=== PATIENT | female | born 1990 | race Caucasian/White ===

== ENCOUNTER 2023-09-09 15:29 | Outpatient (CLI) | payer BC, SELFPAY ==
[2023-09-11 13:28] LABS: Progesterone 19.4 ng/mL
== END 2023-09-09 15:30 | disposition home or self-care (01) ==
LOC: ANHLAB 15:34
PROVIDERS: Visit Provider Student in an Organized Health Care Education/Training Program
DX: Z30.09 Encounter for other general counseling and advice on contraception (principal)
CPT/HCPCS: 36415; 84144

== ENCOUNTER 2023-10-12 16:29 | Emergency (ER) | payer BC, SELFPAY ==
--- NOTE | ~2023-10-12 | US_ITS ---
EXAMINATION: US OB <= 14 weeks fetus DATE: 10/12/2023 19:42 INDICATION: Early . Vaginal bleeding. TECHNIQUE: Real-time transabdominal and transvaginal pelvic ultrasound was performed. COMPARISON: None. FINDINGS: TRANSABDOMINAL ULTRASOUND: The uterus measures 10.4 x 6.0 x 7.9 cm. TRANSVAGINAL ULTRASOUND: There is an intrauterine gestational sac. A yolk sac is identified. The fet al crown rump length measures 1.3 cm, which correlates with an estimated gestational age of 7 weeks a nd 4 day(s) (+/-) 5 day(s). heart motion is identified measuring 157 beats per minute (bpm) by M-mode Doppler. The right ovary measures 3.4 x 2.7 x 2.5 cm. The left ovary measures 2.9 x 2.5 x 2.1 cm. There is no free fluid in the pelvis. IMPRESSION: 1. Single living intrauterine gestation with estimated date of delivery of 05/26/2024. Reviewed, dictated and finalized at location A. IMPRESSION: 1. Single living intrauterine gestation with estimated date of delivery of 05/09.
[2023-10-12 16:33] VITALS: BP 130/62; PULSE 77; RESP 16; TEMP 36.4; O2SAT 100
--- NOTE | 2023-10-12 16:52 | ED.PREGNANCY ---
HPI - General Chief complaint: Vaginal Bleeding <RIYA Mancia Last Filed: 10/12/23 19:21> Stated complaint: 8 weeks with vaginal bleeding <RIYA Mancia Last Filed: 10/12/23 19:21> Time Seen by Provider: 10/12/23 16:37 <RIYA Mancia Last Filed: 10/12/23 19:21> Source: patient <RIYA Mancia Last Filed: 10/12/23 19:21> Mode of arrival: ambulatory <RIYA Mancia Last Filed: 10/12/23 19:21> Limitations: no limitations <RIYA Mancia Last Filed: 10/12/23 19:21> History of Present Illness HPI Narrative: Patient is a 33 y/o female who presents to the ED with c/o vaginal bleeding. Patient is and currently approx 8 weeks gestation. OBGYN = Dr. Medrano. Had an US around 2 weeks ago at an outside ED and showed live IUP. Did show a subchorionic hematoma. Reports today she felt a gush of fluid today while at work and noticed bright red blood when she went to the bathroom. Contacted her OBGYN and was referred here for further evaluation. Patient reports she has had ongoing cramping in her right lower abdomen and lower back since began. Denies any change in cramping today. Reports ongoing nausea. Denies vomiting, dysuria, hematuria, fevers, dizziness/lightheadedness. Denies recent intercourse/heavy lifting. <RIYA aMncia Last Filed: 10/12/23 19:21> Related Data Home medications: Home Medications Medication Instructions Recorded Confirmed vits no.126-ferrous fum tablet PO 10/04/23 28 mg iron-folic acid 800 mcg tablet (Classic ) <RIYA Mancia Last Filed: 10/12/23 19:21> Allergies/Adverse reactions: Allergies Allergy/AdvReac Type Severity Reaction Status Date / Time ibuprofen Allergy Mild Nausea and Verified 10/12/23 16:36 Vomiting morphine Allergy Mild Itching Verified 10/12/23 16:36 <Bryanna Becerra PA-C - Last Filed: 10/12/23 19:21> Review of Systems Review of Systems: All systems reviewed & are unremarkable except as noted in HPI. <Bryanna Becerra PA-C - Last Filed: 10/12/23 19:21> All systems reviewed & are unremarkable except as noted in HPI and below <Bryanna Becerra PA-C - Last Filed: 10/12/23 19:21> [facility] Past Medical History Medical History: Medical History Suppression of menses <Bryanna Becerra PA-C - Last Filed: 10/12/23 19:21> Surgical History Surgical History: Surgical History History of delivery History of tonsillectomy <Bryanna Becerra PA-C - Last Filed: 10/12/23 19:21> Family History Family History: Family History Father Hypertension Mother No problems noted. Sibling No problems noted. <Bryanna Becerra PA-C - Last Filed: 10/12/23 19:21> Social History Social History: Social History Smoking status: Current every day smoker Tobacco type: e-cigarettes/vaping Alcohol intake: current Substance use: current Substance use type: marijuana Last use: edible at night Do You Feel Safe in your Home?: Yes Lack of Transportation: No Lack of Food: Never True Current Housing: I Have Housing Concerned About Future Housing: No Difficulty Paying Gas/Electric Bills: No Difficulty Paying for Meds: No Currently Unemployed: No Education: Trade/Vocational Certificate Difficulty w/ Childcare or Family Care: No Living arrangements: with family Occupation/Education: occupation Gender identity (if verbalized by the patient): Female Sexual Orientation (if Verbalized by the Patient): Straight or Heterosexual <Bryanna Becerra,
[2023-10-12 17:03] LABS: Basophils Percent Auto 0.3 % (0.2-1.2); Eosinophils Percent Auto 0.5 % (0-4.4); Hematocrit 33.5 % (37.0-47.0); Hemoglobin 11.3 g/dL (12.0-15.0); Immature Granulocyte Absolute 0.03 K/mm3 (0.00-0.031); Immature Granulocyte Percent A 0.4 % (0-0.5); Lymphocytes Percent Auto 18.3 % (18.3-44.2); Mean Corpuscular HGB Conc 33.7 g/dl (32-36); Mean Corpuscular Hemoglobin 29.6 pg (26-34); Mean Corpuscular Volume 87.7 fl (80-100); Mean Platelet Volume 10.3 fl (7.4-10.4); Monocytes Absolute Auto 0.5 K/mm3 (0.1-0.6); Monocytes Percent Auto 6.5 % (2.6-8.5); Neutrophils Absolute Auto 5.7 K/mm3 (1.3-6.7); Platelet Count Result 176 k/mm3 (150-375); Red Blood Count 3.82 M/mm3 (4.2-5.4); Red Cell Distribution Width 12.2 % (11.5-14.5); White Blood Count 7.7 K/mm3 (4.5-10.0)
[2023-10-12 17:04] LABS: Add Urine Microscopic? NO; Appearance Urine Clear (Clear); Bilirubin Urine Negative (Negative); Blood Urine Negative (Negative); Color Urine Yellow (Yellow); Glucose Urine UA Negative (Negative); Ketones Urine Negative (Negative); Leukocyte Esterase Ur Negative LEU/UL (Negative); Nitrate Urine Negative (Negative); Protein Urine Negative (Negative); Specific Grav Ur 1.025 (1.001-1.035); Urobilinogen Urine 0.2 mg/dL (<2.0); pH Urine 5.5 (5.0-9.0)
[2023-10-12 17:15] LABS: Prothrombin Time 13.2 Seconds (11.1-14.7)
[2023-10-12 17:16] LABS: Partial Thromboplastin Time 29.3 Seconds (22.3-36.8)
[2023-10-12 18:13] LABS: Alanine Aminotransferase 16 U/L (6-35); Albumin Level 4.6 g/dL (3.5-5.1); Alkaline Phosphatase 45 U/L (38-126); Anion Gap 13 mmol/L (4-12); Aspartate Amino Transferase 49 U/L (14-36); Bilirubin,Total 0.7 mg/dL (0.2-1.3); Blood Urea Nitrogen 17 mg/dL (7-17); Calcium 9.2 mg/dL (8.4-10.2); Carbon Dioxide 22 mmol/L (22-30); Chloride 99 mmol/L (98-107); Estimated CRCL calculation 108 ml/min; Estimated Glomerular Filt Rate > 60; Glucose 84 mg/dL (65-110); Potassium 4.9 mmol/L (3.4-5.0); Sodium 134 mmol/L (137-145)
[2023-10-12 20:00] VITALS: BP 122/85; PULSE 87; RESP 16; O2SAT 98
== END 2023-10-12 20:34 | disposition home or self-care (01) ==
PROVIDERS: Emergency Provider Physician Assistant
DX: O20.9 Hemorrhage in early pregnancy, unspecified (principal); O99.331 Smoking (tobacco) complicating pregnancy, first trimester; F17.290 Nicotine dependence, other tobacco product, uncomplicated; Z3A.08 8 weeks gestation of pregnancy
CPT/HCPCS: 36415; 76801; 80053; 81003; 84702; 85025; 85461; 85610; 85730; 86850; 86900; 86901; 99284

== ENCOUNTER 2023-10-25 11:23 | Outpatient (CLI) | payer BC, SELFPAY ==
[2023-10-25 12:53] LABS: Basophils Percent Auto 0.4 % (0.2-1.2); Eosinophils Absolute Auto 0.1 K/mm3 (0-0.3); Eosinophils Percent Auto 0.9 % (0-4.4); Hematocrit 34.5 % (37.0-47.0); Hemoglobin 11.4 g/dL (12.0-15.0); Immature Granulocyte Absolute 0.14 K/mm3 (0.00-0.031); Immature Granulocyte Percent A 1.8 % (0-0.5); Lymphocytes Absolute Auto 1.38 K/mm3 (0.9-3.2); Lymphocytes Percent Auto 17.8 % (18.3-44.2); Mean Corpuscular Volume 87.8 fl (80-100); Mean Platelet Volume 10.6 fl (7.4-10.4); Monocytes Absolute Auto 0.4 K/mm3 (0.1-0.6); Monocytes Percent Auto 5.7 % (2.6-8.5); Neutrophils Absolute Auto 5.7 K/mm3 (1.3-6.7); Neutrophils Percent Auto 73.4 % (45.5-73.1); Platelet Count Result 199 k/mm3 (150-375); Red Blood Count 3.93 M/mm3 (4.2-5.4); Red Cell Distribution Width 12.2 % (11.5-14.5); White Blood Count 7.8 K/mm3 (4.5-10.0)
[2023-10-25 14:05] LABS: HIV 1/2 Ab P24 Ag Result Negative (Negative)
[2023-10-25 14:14] LABS: Hepatitis B Surface Antigen Negative (Negative); Rubella IgG Antibody 34.8 IU/ML
[2023-10-25 17:27] LABS: Rapid Plasma Reagin Non-Reactive (NonReactive)
[2023-10-26 13:23] LABS: CMV IgG Antibody <0.60 U/mL
== END 2023-10-25 11:24 | disposition home or self-care (01) ==
LOC: ANHLAB 11:25
PROVIDERS: Visit Provider Student in an Organized Health Care Education/Training Program
DX: N94.89 Other specified conditions associated with female genital organs and menstrual cycle (principal)
CPT/HCPCS: 36415; 81220; 85025; 86592; 86644; 86703; 86747; 86762; 86787; 86850; 86900; 86901; 87086; 87340; G0432

== ENCOUNTER 2024-03-08 08:49 | Outpatient (CLI) | payer BC, SELFPAY ==
--- OUTSIDE RECORDS SUMMARY | 2024-03-08 09:13 | XMS_ITS | Clinical Summary ---
Author Organization [facility] Address [address] [place] [address] Care Team Providers Care Setter Helper Name Role Phone Whit Dailey MD Primary Care Provider [phone] Source Comments [facility],non-owned Affiliates and Associated Physician Practices is amultiple site organization consisting of ambulatory clinics and hospital sitesin [place], [place], [place] and [place]. This disclosure is being madepursuant to the Care Everywhere program and may not contain all information available regarding this patient. Last updated 17.[facility] Allergies Active Allergy Reactions Criticality Noted Date Comments Morphine Angioedema High 10/03/2023 Ibuprofen Angioedema High 10/03/2023 Medications * Be aware that medications may not be up to date on this document. Alwaysverify current medications with the patient. Medication Sig Dispensed Refills Start Date End Date Status escitalopram (Lexapro) 5 MG tablet Take 1 (one) tablet by mouth once daily 12/08/2023 Active hydrOXYzine HCl (Atarax) 25 MG tablet Take 1 (one) tablet by mouth 3 times daily as needed 12/06/2023 Active ondansetron (Zofran) 4 MG tablet TAKE 1 TABLET BY MOUTH EVERY 6 HOURS NEEDED FOR NAUSEA OR VOMITING 10/05/2023 Active Cetirizine HCl (ZYRTEC PO) Active fluticasone propionate (Flonase) 50 MCG/ACT nasal spray [place] 2 (two) sprays into each nostril Active diphenhydrAMINE (Benadryl) 25 MG capsule Take 1 (one) capsule by mouth nightly as needed for Itching Active Active Problems Problem Noted Date Diagnosed Date Generalized anxiety disorder 12/21/2023 Allergic rhinitis 12/21/2023 18 weeks gestation of 12/21/2023 PND (post-nasal drip) 12/21/2023 Skipped heart beats 12/21/2023 Estimated Date of Delivery Comme nts Yes 05/25/2024 Encounters Date Type Department Care Team Description 01/18/2024 Telephone [facility] [address] [place] [address] Whit Dailey MD Referral 12/21/2023 9:00 AM WIRE REPAIRER Office Visit [facility] [address] [place] [phone] Whit Dailey MD 18 weeks gestation of (HCC) (Primary Dx); Allergic rhinitis, unspecified seasonality, unspecified trigger; PND (post-nasal drip); Generalized anxiety disorder; Skipped heart beats from Last 3 Months Family History Medical History Relation Name Comments Depression Father High Cholesterol Father None Known Maternal Grandfather None Known Maternal Grandmother None Known Mother Dementia Paternal Grandmother Depression Sister 1 Relation Name Status Comments Brother Alive Father Alive Maternal Grandfather Maternal Grandmother Mother Alive Paternal Grandfather Paternal Grandmother Alive Sister 1 Alive Sister 2 Alive Social History Tobacco Use Types Packs/Day Years Used Date Smoking Tobacco: Former Cigarettes Q uit: 2022 Smokeless Tobacco: Never Tobacco Cessation:Counseling Given: Not Answered Alcohol Use Standard Drinks/Week Comments Not Currently 0 (1 standard drink = 0.6 oz pur e alcohol) PHQ-2 Answer Date Recorded Patient Health Questionnaire-2 Score 0 12/21/2023 Estimated Date of Delivery Comme nts Yes 05/25/2024 Sex and Gender Information Value Date Recorded Sex Assigned at Not on file Gender Identity Not on file Sexual Orientation Not on file Last Filed Vital Signs Vital Sign Reading Time Taken Comments Blood Pressure 102/63 12/21/2023 8:52 AM WIRE REPAIRER Pulse 99 12/21/2023 8:52 AM WIRE REPAIRER Temperature 36.8 ??C (98.3 ??F) 10/21/2023 9:34 AM CD T Respiratory Rate 18 12/21/2023 8:52 AM WIRE REPAIRER Oxygen Saturation 98% 12/21/2023 8:52 AM WIRE REPAIRER Inhaled Oxygen Concentration - - Weight 72.1 kg (159 lb) 12/21/2023 8:52 AM WIRE REPAIRER Height 170.2 cm (5' 7 ) 12/21/2023 8:52 AM WIRE REPAIRER Body Mass Index 24.9 12/21/2023 8:52 AM WIRE REPAIRER Plan of Treatment Upcoming Encounters Date Type Department Care Team (Late st Contact Info) Description 04/03/2024 11:30 AM WIRE REPAIRER Office Visit [facility] - Family Medicine [address] [place] [address] Whit Dailey MD [address] [place] [address] Health Maintenance Due Date Last Done Comments HIV SCREENING 02/07/2003 HEPATITIS C SCREENING 02/03/2006 DTAP/TDAP/TD VACCINES (1 - Tdap) 02/07/2007 HEPATITIS B VACCINE (1 of 3 - 19+ 3-dose series) 02/07/2007 COVID-19 VACCINE ( - 2023-2 5 season) 2023 INFLUENZA VACCINE (#1) 2023 DEPRESSION SCREENING 02/09/2024 12/21/2023 OB-ONE HOUR GLUCOSE 02/17/2024 OB-TDAP CURRENT 02/24/2024 PAP SMEAR 09/08/2025 09/08/2022 (Done Outside Per Patient) ZOSTER VACCINE (1 of 2) 02/07/2038 HIB VACCINE Aged Out No longer eligi ble based on patient's age to complete this topic HPV VACCINE Aged Out No longer eligi ble based on patient's age to complete this topic MENINGOCOCCAL (Group B) VACCINE Aged Out No longer eligible based on patient's age to complete this topic MENINGOCOCCAL VACCINE Aged Out No dominga brent eligible based on patient's age to complete this topic PNEUMOCOCCAL VACCINE Aged Out No long er eligible based on patient's age to complete this topic Respiratory Syncytial Virus (RSV) Vaccine Pt: or over 60 yrs (No Doses Required) Completed Care Teams Setter Helper Relationship Specialty Start Date End Date Whit Dailey MD [address] [place] [address] PCP - General Family Medicine 12/21/23
--- OUTSIDE RECORDS SUMMARY | 2024-03-08 09:13 | XMS_ITS | Patient Health Summary ---
Author Organization [facility] Address [address] [place] [address] Care Team Providers Care Men'S Basketball Coach Name Role Phone Whit Dailey MD Primary Care Provider [phone] Note from [facility],non-owned Affiliates and Associated Physician Practices is amultiple site organization consisting of ambulatory clinics and hospital sitesin [place], [place], [place] and [place]. This disclosure is being madepursuant to the Care Everywhere program and may not contain all information available regarding this patient. Last updated 17.[facility] Allergies * Morphine(Angioedema) -High Criticality * Ibuprofen(Angioedema) -High Criticality Medications * Be aware that medications may not be up to date on this document. Alwaysverify current medications with the patient. * escitalopram (Lexapro) 5 MG tablet(Started 12/08/2023) Take 1 (one) tablet by mouth once daily * hydrOXYzine HCl (Atarax) 25 MG tablet(Started 12/06/2023) Take 1 (one) tablet by mouth 3 times daily as needed * ondansetron (Zofran) 4 MG tablet(Started 10/05/2023) TAKE 1 TABLET BY MOUTH EVERY 6 HOURS NEEDED FOR NAUSEA OR VOMITING * Cetirizine HCl (ZYRTEC PO) * fluticasone propionate (Flonase) 50 MCG/ACT nasal spray [place] 2 (two) sprays into each nostril * diphenhydrAMINE (Benadryl) 25 MG capsule Take 1 (one) capsule by mouth nightly as needed for Itching Active Problems Problem Noted Date Diagnosed Date Generalized anxiety disorder 12/21/2023 Allergic rhinitis 12/21/2023 18 weeks gestation of 12/21/2023 PND (post-nasal drip) 12/21/2023 Skipped heart beats 12/21/2023 Social History Tobacco Use Types Packs/Day Years [...] Comments Blood Pressure 102/63 12/21/2023 8:52 AM BOWLING BALL ASSEMBLER Pulse 99 12/21/2023 8:52 AM BOWLING BALL ASSEMBLER Temperature 36.8 ??C (98.3 ??F) 10/21/2023 9:34 AM C DT Respiratory Rate 18 12/21/2023 8:52 AM BOWLING BALL ASSEMBLER Oxygen Saturation 98% 12/21/2023 8:52 AM BOWLING BALL ASSEMBLER Inhaled Oxygen Concentration - - Weight 72.1 kg (159 lb) 12/21/2023 8:52 AM BOWLING BALL ASSEMBLER Height 170.2 cm (5' 7 ) 12/21/2023 8:52 AM BOWLING BALL ASSEMBLER Body Mass Index 24.9 12/21/2023 8:52 AM BOWLING BALL ASSEMBLER Procedures * US OB LESS 14 WKS W TRANSV W DOPP(Performed 10/21/2023) Performed for Vaginal bleeding during (HCC) * TYPE + SCREEN PANEL(Performed 10/21/2023) * HCG BETA BLOOD QUANTITATIVE(Performed 10/21/2023) * MAGNESIUM BLOOD(Performed 10/21/2023) * COMPREHENSIVE METABOLIC PANEL(Performed 10/21/2023) * CBC W AUTO DIFFERENTIAL(Performed 10/21/2023) * US OB LESS 14 WKS W TRANSV W DOPP(Performed 10/03/2023) Performed for Pelvic cramping * URINALYSIS REFLEX MICROSCOPIC REFLEX CULTURE(Performed 10/03/2023) * BLOOD TYPE ABO+ RH PANEL(Performed 10/03/2023) * HCG BETA BLOOD QUANTITATIVE(Performed 10/03/2023) * MAGNESIUM BLOOD(Performed 10/03/2023) * COMPREHENSIVE METABOLIC PANEL(Performed 10/03/2023) * CBC W AUTO DIFFERENTIAL(Performed 10/03/2023) Results * US OB Less 14 Wks W Transv W Dopp (10/21/2023 11:16 AM CDT) Only the most recent of2 resultswithin the time period is included. Anatomical Region Laterality Modality Pelvis Ultrasound 10/21/2023 11:2 3 AM CDT Narrative 10/21/2023 11:30 AM CDT PROCEDURE: ??US OB LESS 14 WKS W TRANSV W DOPP, DATE/TIME OF EXAM: 10/21/2023 11:16 AM, LOCATION ??[facility] INDICATION: O46.90: Antepartum hemorrhage, unspecified, unspecified trimester (HCC) Obstetric ultrasound transabdominal and transvaginal views HISTORY: Vaginal bleeding bleeding and . Comparison is made to 10/03/2023. Since prior examination is been interval growth of an intrauterine gestation now consistent with a 9 week 1 day gestation with positive heart tones of 161 bpm. There is a probable 5.1 x 1.1 x 3.8 cm subchorionic hemorrhage. The right ovary measures 4.1 cm and the left ovary measures 3.0 cm. There is a likely right corpus luteum measuring 2.7 cm. There is a area of 5 slight increased echotexture in the left adnexa adjacent to the uterus of uncertain significance. Could represent an echogenic bowel loop or less likely an dermoid tumor. The flanks however were not seen on prior ultrasound examination and would more likely represent a bowel loop and dermoid. Normal color flow and spectral waveforms are present. No free pelvic fluid is seen. Examination is limited and follow-up is recommended. > Interpreting Provider: Quinton Triana MD on 10/21/2023 11:30 AM Procedure Note Quinton Triana MD - 10/21/2023 PROCEDURE: US OB LESS 14 WKS W TRANSV W DOPP, DATE/TIME OF EXAM: 10/21/2023 11:16 AM, LOCATION [facility] INDICATION: O46.90: Antepartum hemorrhage, unspecified, unspecified trimester (HCC) Obstetric ultrasound transabdominal and transvaginal views HISTORY: Vaginal bleeding bleeding and . Comparison is made to 10/03/2023. Since prior examination is been interval growth of an intrauterine gestation now consistent with a 9 week 1 day gestation with positivefetal heart tones of 161 bpm. There is a probable 5.1 x 1.1 x 3.8 cmsubchorionic hemorrhage. The right ovary measures 4.1 cm and the left ovary measures 3.0 cm.There is a likely right corpus luteum measuring 2.7 cm. There is a area of 5 slight increased echotexture in the left adnexa adjacent to the uterusof uncertain significance. Could represent an echogenic bowel loop or less likely an dermoid tumor. The flanks however were not seen on prior ultrasound examination and would more likely represent a bowel loop and dermoid. Normal color flow and spectral waveforms are present. No free pelvic fluid is seen. Examination is limited and follow-up is recommended. > Interpreting Provider: Quinton Triana MD on 10/21/2023 11:30 AM [facility] US ORDERABLES * TYPE + SCREEN PANEL (10/21/2023 9:55 AM CDT) ABO Rh O POS 10/21/2023 10:32 AM CDT [facility] Comment:History checked. Antibody Screen NEG 10:32 AM CDT [facility] Blood Bank BLOOD SPECIMEN / Unknown Venipuncture / Unknown 10/21/2023 9:55 AM CDT 10/21/2023 9:55 AM CDT [facility] - BLOOD BANK O RDERABLES [facility] [address] [phone] * (ABNORMAL) CBC W AUTO DIFFERENTIAL (10/21/2023 9:55 AM CDT) Only the most recent of2 resultswithin the time period is included. WBC 6.0 4.0 - 10.7 x10E9/L 10/21/2023 9:57 AM CDT [facility] RBC Count 3.91 3.90 - 5.20 x10E12/L 10/21/2023 9:57 AM CDT [facility] Hemoglobin 11.3(L) 11.9 - 15.8 g/dL 10/21/2023 9:57 AM CDT [facility] Hematocrit 34.0(L) 34.8 - 46.1 % 10/21/2023 9:57 AM CDT [facility] MCV 87.0 80.0 - 98.0 fL 10/21/2023 9:57 AM CDT [facility] MCH 28.9 26.7 - 33.6 pg 10/21/2023 9:57 AM CDT [facility] MCHC 33.2 31.7 - 36.3 g/dL 10/21/2023 9:57 AM CDT [facility] RDW-CV 12.3 11.3 - 14.8 % 10/21/2023 9:57 AM CDT [facility] Platelet Count 174 150 - 420 x10E9/L 10/21/2023 9:57 AM CDT [facility] MPV 9.8 7.8 - 11.4 fL 10/21/2023 9:57 AM CDT [facility] Neutrophil % 72.0 41.0 - 74.0 % 10/21/2023 9:57 AM CDT [facility] Lymphocyte % 19.3 17.0 - 47.0 % 10/21/2023 9:57 AM CDT [facility] Monocyte % 7.0 3.0 - 11.0 % 10/21/2023 9:57 AM CDT [facility] Eosinophil % 1.2 0.0 - 7.0 % 10/21/2023 9:57 AM CDT [facility] Basophil % 0.2 0.0 - 1.6 % 10/21/2023 9:57 AM CDT [facility] Immature Granulocytes % 0.3 0.0 - 1.0 % 10/21/2023 9:57 AM CDT [facility] Neutrophil Absolute 4.33 1.60 - 7.50 x10E9/L 10/21/2023 9:57 AM CDT [facility] Lymphocyte Absolute 1.16 1.00 - 4.40 x10E9/L 10/21/2023 9:57 AM CDT [facility] Monocyte Absolute 0.42 0.15 - 1.00 x10E9/L 10/21/2023 9:57 AM CDT [facility] Eosinophil Absolute 0.07 0.00 - 0.60 x10E9/L 10/21/2023 9:57 AM CDT [facility] Basophil Absolute 0.01 0.00 - 0.13 x10E9/L 10/21/2023 9:57 AM CDT [facility] Blood BLOOD SPECIMEN / Unknown Venipuncture / Unknown 10/21/2023 9:55 AM CDT 10/21/2023 9:55 AM CDT [facility] - HEMATOLOGY O RDERABLES [facility] [address] [place] [address] * COMPREHENSIVE METABOLIC PANEL (10/21/2023 9:55 AM CDT) Only the most recent of2 resultswithin the time period is included. Glucose 86 70 - 105 mg/dL 10/21/2023 10:12 AM [facility] Sodium 136 136 - 145 mmol/L 10/21/2023 10:12 AM [facility] Potassium 3.9 3.5 - 5.1 mmol/L 10/21/2023 10:12 AM [facility] Chloride 106 98 - 107 mmol/L 10/21/2023 10:12 AM [facility] CO2 23 22 - 29 mmol/L 10/21/2023 10:12 AM [facility] Calcium 9.6 8.4 - 10.4 mg/dL 10/21/2023 10:12 AM [facility] Anion Gap 7 6 - 16 mmol/L 10/21/2023 10:12 AM CDT [facility] BUN 11 5.3 - 18.7 mg/dL 10/21/2023 10:12 AM CDT [facility] Creatinine 0.76 0.57 - 1.11 mg/dL 10/21/2023 10:12 AM [facility] Alkaline Phosphatase 59 40 - 150 U/L 10/21/2023 10:12 AM [facility] ALT 19 0 - 55 U/L 10/21/2023 10:12 AM CDT [facility] AST 19 5 - 34 U/L 10/21/2023 10:12 AM CDT [facility] Protein Total 6.9 6.4 - 8.3 gm/dL 10/21/2023 10:12 AM CDT [facility] Albumin 3.8 3.4 - 5.0 gm/dL 10/21/2023 10:12 AM CDT [facility] Bilirubin Total 0.3 0.2 - 1.2 mg/dL 10/21/2023 10:12 AM CDT [facility] eGFR by CKD-EPI >90 >=90 mL/min/1.7 3 m2 10/21/2023 10:12 AM CDT [facility] Blood BLOOD SPECIMEN / Unknown Venipuncture / Unknown 10/21/2023 9:55 AM CDT 10/21/2023 9:55 AM CDT [facility] - CHEMISTRY OR DERABLES Performing Organization Address City/State/[facility] Co de Phone Number [facility] [address] [place] [address] * HCG BETA BLOOD QUANTITATIVE (10/21/2023 9:55 AM CDT) Only the most recent of2 resultswithin the time period is included. [facility] hCG Quantitative 184,296.1 6 mIU/mL 10/21/2023 10:39 AM CDT [facility] Blood BLOOD SPECIMEN / Unknown Venipuncture / Unknown 10/21/2023 9:55 AM CDT 10/21/2023 9:55 AM CDT Narrative [facility] - 10/21/2023 10:39 AM CDT hCG Reference Range, mIU/mL: ? Non Females ? 0-6.0 ? Perimenopausal Females ages 41-55* ?0-7.7 ? Postmenopausal Females age >55* ? 0-14 ? Females, Weeks after Last Menstrual Period ?0.2-1 week ? 5-50 ?1 - 2 weeks ?50-500 ?2 - 3 weeks ?100-5000 ?3 - 4 weeks ?500-10,000 ?4 - 5 weeks ?1000-50,000 ?5 - 6 weeks ?10,000-100,000 ?6 - 8 weeks ?15,000-200,000 ?2 - 3 months ? 10,000-100,000 ?Trophoblastic Disease ?>100,000 *In higher than expected hCG in females > age 40, a serum FSH >20 IU/L makes unlikely. [facility] - CHEMISTRY OR DERABLES Performing Organization Address City/State/[facility] Co ut Phone Number [facility] [address] [place] [address] * MAGNESIUM BLOOD (10/21/2023 9:55 AM CDT) Only the most recent of2 resultswithin the time period is included. [facility] Magnesium 1.7 1.6 - 2.6 mg/dL 10/21/2023 10:12 AM CDT [facility] Blood BLOOD SPECIMEN / Unknown Venipuncture / Unknown 10/21/2023 9:55 AM CDT 10/21/2023 9:55 AM CDT [facility] - CHEMISTRY OR DERABLES Performing Organization Address City/State/[facility] Co de Phone Number [facility] [address] [place], [place] [id number] * (ABNORMAL) URINALYSIS REFLEX MICROSCOPIC REFLEX CULTURE (10/03/2023 1:11 PM CDT) Color UA Colorless(A) Straw, Yellow 10/03/2023 1:17 PM CDT [facility] Clarity UA Clear Clear 10/03/2023 1:17 PM CDT [facility] Glucose UA Negative Negative 10/03/2023 1:17 PM CDT [facility] Bilirubin UA Negative Negative 10/03/2023 1:17 PM CDT [facility] Ketone UA Negative Negative 10/03/2023 1:17 PM CDT [facility] Specific [place] UA 1.003(L) 1.005 - 1.030 10/03/2023 1:17 PM CDT [facility] Blood UA Negative Negative 10/03/2023 1:17 PM CDT [facility] pH UA 8.0 5.0 - 8.0 pH 10/03/2023 1:17 PM CDT [facility] Protein UA Negative Negative 10/03/2023 1:17 PM CDT [facility] Urobilinogen UA Negative Negative mg/dL 10/03/2023 1:17 PM CDT [facility] Nitrite UA Negative Negative 10/03/2023 1:17 PM CDT [facility] Leukocyte UA Negative Negative 10/03/2023 1:17 PM CDT [facility] Urine Microscopy Urine microscopy not indicated 10/03/2023 1:17 PM CDT [facility] Reflex Status Culture not indicated 10/03/2023 1:17 PM CDT [facility] Urine URINE SPECIMEN OBTAINED BY CLEAN CATCH PROCEDURE / Unknown Collection / Unknown 10/03/2023 1:11 PM CDT 10/03/2023 1:11 PM CDT Narrative [facility] - 10/03/2023 1:17 PM CDT [facility] - URINALYSIS O RDERABLES Performing Organization Address City/[facility] Co de Phone Number [facility] [address] [place] [phone] * BLOOD TYPE ABO+ RH PANEL (10/03/2023 11:33 AM CDT) ABO Rh O POS 10/03/2023 12:14 PM CDT [facility] Comment:No history; collect retype. Blood BLOOD SPECIMEN / Unknown Venipuncture / Unknown 10/03/2023 11:33 AM CDT 10/03/2023 11:34 AM CDT Angelic Woo DO LAB - BLOOD BANK ORD ERABLES Performing Organization Address [facility] Co de Phone Number [facility] [address] [place] [address] Care Teams Men'S Basketball Coach Relationship Specialty Start Date End Date Whit Dailey MD [address] [place] [address] PCP - General Family Medicine 12/21/23
--- OUTSIDE RECORDS SUMMARY | 2024-03-08 09:13 | XMS_ITS | Referral Summary ---
Author Organization [facility] Address [address] [facility] [place] [address] Care Team Providers Care Fish Cake Maker Name Role Phone Whit Dailey MD Primary Care Provider [phone] Source Comments [facility],non-owned Affiliates and Associated Physician Practices is amultiple site organization consisting of ambulatory clinics and hospital sitesin [place], [place], [place] and [place]. This disclosure is being madepursuant to the Care Everywhere program and may not contain all information available regarding this patient. Last updated 17.[facility] Encounters Date Type Department Care Team Description 01/18/2024 Telephone [facility] [address] [place] [phone] Whit Dailey MD Referral 12/21/2023 9:00 AM MANAGER OF CARE Office Visit [facility] [address] [place] [phone] Whit Dailey MD 18 weeks gestation of (HCC) (Primary Dx); Allergic rhinitis, unspecified seasonality, unspecified trigger; PND (post-nasal drip); Generalized anxiety disorder; Skipped heart beats from Last 3 Months Allergies Active Allergy Reactions Criticality Noted Date [...] fluticasone propionate (Flonase) 50 MCG/ACT nasal spray [place] 2 (two) sprays into each nostril Active diphenhydrAMINE (Benadryl) 25 MG capsule Take 1 (one) capsule by mouth nightly as needed for Itching Active Active Problems Problem Noted Date Diagnosed Date Generalized anxiety disorder 12/21/2023 Allergic rhinitis 12/21/2023 18 weeks gestation of 12/21/2023 PND (post-nasal drip) 12/21/2023 Skipped heart beats 12/21/2023 Estimated Date of Delivery Comme nts Yes 05/25/2024 Social History Tobacco Use Types Packs/Day Years [...] Comments Blood Pressure 102/63 12/21/2023 8:52 AM MANAGER OF CARE Pulse 99 12/21/2023 8:52 AM MANAGER OF CARE Temperature 36.8 ??C (98.3 ??F) 10/21/2023 9:34 AM CD T Respiratory Rate 18 12/21/2023 8:52 AM MANAGER OF CARE Oxygen Saturation 98% 12/21/2023 8:52 AM MANAGER OF CARE Inhaled Oxygen Concentration - - Weight 72.1 kg (159 lb) 12/21/2023 8:52 AM MANAGER OF CARE Height 170.2 cm (5' 7 ) 12/21/2023 8:52 AM MANAGER OF CARE Body Mass Index 24.9 12/21/2023 8:52 AM MANAGER OF CARE Plan of Treatment Upcoming Encounters Date Type Department Care Team (Late st Contact Info) Description 04/03/2024 11:30 AM MANAGER OF CARE Office Visit [facility] - Family Medicine [address] [place] [phone] Whit Dailey MD [address] [place] [address] Care Teams Fish Cake Maker Relationship Specialty Start Date End Date Whit Dailey MD [address] [place] [address] PCP - General Family Medicine 12/21/23
[2024-03-08 10:29] LABS: Hematocrit 28.7 % (37.0-47.0); Hemoglobin 9.3 g/dL (12.0-15.0); Mean Corpuscular HGB Conc 32.4 g/dl (32-36); Mean Corpuscular Hemoglobin 28.4 pg (26-34); Mean Corpuscular Volume 87.5 fl (80-100); Mean Platelet Volume 9.7 fl (7.4-10.4); Platelet Count Result 202 k/mm3 (150-375); Red Blood Count 3.28 M/mm3 (4.2-5.4); Red Cell Distribution Width 12.7 % (11.5-14.5); White Blood Count 8.2 K/mm3 (4.5-10.0)
[2024-03-08 10:41] LABS: Glucose 1 Hour PP 50gm Dose 124 mg/dL
[2024-03-08 11:19] LABS: HIV 1/2 Ab P24 Ag Result Negative (Negative)
[2024-03-09 11:14] LABS: Rapid Plasma Reagin Non-Reactive (NonReactive)
== END 2024-03-08 08:50 | disposition home or self-care (01) ==
LOC: ANHLAB 08:50
PROVIDERS: Visit Provider Student in an Organized Health Care Education/Training Program
DX: Z34.90 Encounter for supervision of normal pregnancy, unspecified, unspecified trimester (principal)
CPT/HCPCS: 36415; 82947; 85027; 86592; 86703; G0432

== ENCOUNTER 2024-03-21 11:28 | Outpatient (CLI) | payer BC, SELFPAY ==
--- OUTSIDE RECORDS SUMMARY | 2024-03-21 12:47 | XMS_ITS | Patient Health Summary ---
Author Organization [facility] Address [address] [facility] [place] [address] Care Team Providers Care Debeaker Name Role Phone Whit Dailey MD Primary Care Provider [phone] Note from [facility],non-owned Affiliates and Associated Physician Practices is amultiple site organization consisting of ambulatory clinics and hospital sitesin [place], [place], [place] and [place]. This disclosure is being madepursuant to the Care Everywhere program and may not contain all information available regarding this patient. Last updated 17.[facility] Allergies * Morphine(Angioedema) -High Criticality * [...] fluticasone propionate (Flonase) 50 MCG/ACT nasal spray [place] 2 (two) sprays into each nostril * [...] Comments Blood Pressure 102/63 12/21/2023 8:52 AM FIELD OPERATOR Pulse 99 12/21/2023 8:52 AM FIELD OPERATOR Temperature 36.8 C (98.3 F) 10/21/2023 9:34 AM CDT Respiratory Rate 18 12/21/2023 8:52 AM FIELD OPERATOR Oxygen Saturation 98% 12/21/2023 8:52 AM FIELD OPERATOR Inhaled Oxygen Concentration - - Weight 72.1 kg (159 lb) 12/21/2023 8:52 AM FIELD OPERATOR Height 170.2 cm (5' 7 ) 12/21/2023 8:52 AM FIELD OPERATOR Body Mass Index 24.9 12/21/2023 8:52 AM FIELD OPERATOR Procedures * US OB LESS 14 WKS [...] CDT Narrative 10/21/2023 11:30 AM CDT PROCEDURE: US OB LESS 14 WKS W TRANSV W DOPP, DATE/TIME OF EXAM: 10/21/2023 11:16 AM, LOCATION [facility] INDICATION: O46.90: Antepartum hemorrhage, unspecified, unspecified trimester [...] DATE/TIME OF EXAM: 10/21/2023 11:16 AM, LOCATION [facility] INDICATION: O46.90: Antepartum hemorrhage, unspecified, unspecified trimester [...] Rh O POS 10/21/2023 10:32 AM CDT [facility] Comment:History checked. Antibody Screen NEG 10:32 AM CDT [facility] Blood Bank BLOOD SPECIMEN / Unknown Venipuncture / Unknown 10/21/2023 9:55 AM CDT 10/21/2023 9:55 AM CDT [facility] - BLOOD BANK O RDERABLES [facility] [address] [phone] * (ABNORMAL) CBC W AUTO DIFFERENTIAL (10/21/2023 9:55 AM CDT) Only the most recent of2 resultswithin the time period is included. WBC 6.0 4.0 - 10.7 x10E9/L 10/21/2023 9:57 AM CDT [facility] RBC Count 3.91 3.90 - 5.20 x10E12/L 10/21/2023 9:57 AM CDT [facility] Hemoglobin 11.3(L) 11.9 - 15.8 g/dL 10/21/2023 9:57 AM CDT [facility] Hematocrit 34.0(L) 34.8 - 46.1 % 10/21/2023 9:57 AM CDT [facility] MCV 87.0 80.0 - 98.0 fL 10/21/2023 9:57 AM CDT [facility] MCH 28.9 26.7 - 33.6 pg 10/21/2023 9:57 AM CDT [facility] MCHC 33.2 31.7 - 36.3 g/dL 10/21/2023 9:57 AM CDT [facility] RDW-CV 12.3 11.3 - 14.8 % 10/21/2023 9:57 AM CDT [facility] Platelet Count 174 150 - 420 x10E9/L 10/21/2023 9:57 AM CDT [facility] MPV 9.8 7.8 - 11.4 fL 10/21/2023 9:57 AM CDT [facility] Neutrophil % 72.0 41.0 - 74.0 % 10/21/2023 9:57 AM CDT [facility] Lymphocyte % 19.3 17.0 - 47.0 % 10/21/2023 9:57 AM CDT [facility] Monocyte % 7.0 3.0 - 11.0 % 10/21/2023 9:57 AM CDT [facility] Eosinophil % 1.2 0.0 - 7.0 % 10/21/2023 9:57 AM CDT [facility] Basophil % 0.2 0.0 - 1.6 % 10/21/2023 9:57 AM CDT [facility] Immature Granulocytes % 0.3 0.0 - 1.0 % 10/21/2023 9:57 AM CDT [facility] Neutrophil Absolute 4.33 1.60 - 7.50 x10E9/L 10/21/2023 9:57 AM CDT [facility] Lymphocyte Absolute 1.16 1.00 - 4.40 x10E9/L 10/21/2023 9:57 AM CDT [facility] Monocyte Absolute 0.42 0.15 - 1.00 x10E9/L 10/21/2023 9:57 AM CDT [facility] Eosinophil Absolute 0.07 0.00 - 0.60 x10E9/L 10/21/2023 9:57 AM CDT [facility] Basophil Absolute 0.01 0.00 - 0.13 x10E9/L 10/21/2023 9:57 AM CDT [facility] Blood BLOOD SPECIMEN / Unknown Venipuncture / Unknown 10/21/2023 9:55 AM CDT 10/21/2023 9:55 AM CDT [facility] - HEMATOLOGY O RDERABLES [facility] [address] [place] [address] * COMPREHENSIVE METABOLIC PANEL (10/21/2023 9:55 AM CDT) Only the most recent of2 resultswithin the time period is included. [facility] Glucose 86 70 - 105 mg/dL 10/21/2023 10:12 AM [facility] Sodium 136 136 - 145 mmol/L 10/21/2023 10:12 AM [facility] Potassium 3.9 3.5 - 5.1 mmol/L 10/21/2023 10:12 AM [facility] Chloride 106 98 - 107 mmol/L 10/21/2023 10:12 AM [facility] CO2 23 22 - 29 mmol/L 10/21/2023 10:12 AM [facility] Calcium 9.6 8.4 - 10.4 mg/dL 10/21/2023 10:12 AM [facility] Anion Gap 7 6 - 16 mmol/L 10/21/2023 10:12 AM [facility] BUN 11 5.3 - 18.7 mg/dL 10/21/2023 10:12 AM [facility] Creatinine 0.76 0.57 - 1.11 mg/dL 10/21/2023 10:12 AM [facility] Alkaline Phosphatase 59 40 - 150 U/L 10/21/2023 10:12 AM [facility] ALT 19 0 - 55 U/L 10/21/2023 10:12 AM CDT [facility] AST 19 5 - 34 U/L 10/21/2023 10:12 AM CDT [facility] Protein Total 6.9 6.4 - 8.3 gm/dL 10/21/2023 10:12 AM CDT [facility] Albumin 3.8 3.4 - 5.0 gm/dL 10/21/2023 10:12 AM CDT [facility] Bilirubin Total 0.3 0.2 - 1.2 mg/dL 10/21/2023 10:12 AM CDT [facility] eGFR by CKD-EPI >90 >=90 mL/min/1.7 3 m2 10/21/2023 10:12 AM CDT [facility] Blood BLOOD SPECIMEN / Unknown Venipuncture / Unknown 10/21/2023 9:55 AM CDT 10/21/2023 9:55 AM CDT [facility] - CHEMISTRY OR DERABLES Performing Organization Address City/State/[place] Co de Phone Number [facility] [address] [place], [place] [phone] * HCG BETA BLOOD QUANTITATIVE (10/21/2023 9:55 AM CDT) Only the most recent of2 resultswithin the time period is included. hCG Quantitative 184,296.1 6 mIU/mL 10/21/2023 10:39 AM CDT [facility] Blood BLOOD SPECIMEN / Unknown Venipuncture / Unknown 10/21/2023 9:55 AM CDT 10/21/2023 9:55 AM CDT Narrative [facility] - 10/21/2023 10:39 AM CDT hCG Reference Range, mIU/mL: Non Females 0-6.0 Perimenopausal Females ages 41-55* 0-7.7 Postmenopausal Females age >55* 0-14 Females, Weeks after Last Menstrual Period 0.2-1 week 5-50 1 - 2 weeks 50-500 2 - 3 weeks 100-5000 3 - 4 weeks 500-10,000 4 - 5 weeks 1000-50,000 5 - 6 weeks 10,000-100,000 6 - 8 weeks 15,000-200,000 2 - 3 months 10,000-100,000 Trophoblastic Disease >100,000 *In higher than expected hCG in females > age 40, a serum FSH >20 IU/L makes unlikely. [facility] - CHEMISTRY OR DERABLES Performing Organization Address [facility]/[place] Co de Phone Number [facility] [address] [place] [address] * MAGNESIUM BLOOD (10/21/2023 9:55 AM CDT) Only the most recent of2 resultswithin the time period is included. Pathologist [facility] Magnesium 1.7 1.6 - 2.6 mg/dL 10/21/2023 10:12 AM CDT [facility] Blood BLOOD SPECIMEN / Unknown Venipuncture / Unknown 10/21/2023 9:55 AM CDT 10/21/2023 9:55 AM CDT [facility] - CHEMISTRY OR DERABLES Performing Organization Address [facility] de Phone Number [facility] [address] [place] [address] * (ABNORMAL) URINALYSIS REFLEX MICROSCOPIC REFLEX CULTURE (10/03/2023 1:11 PM CDT) Color UA Colorless(A) Straw, Yellow 10/03/2023 1:17 PM CDT [facility] Clarity UA Clear Clear 10/03/2023 1:17 PM CDT [facility] Glucose UA Negative Negative 10/03/2023 1:17 PM CDT [facility] Bilirubin UA Negative Negative 10/03/2023 1:17 PM CDT [facility] Ketone UA Negative Negative 10/03/2023 1:17 PM CDT [facility] Specific Whitney UA 1.003(L) 1.005 - 1.030 10/03/2023 1:17 PM CDT [facility] Blood UA Negative Negative 10/03/2023 1:17 PM CDT [facility] pH UA 8.0 5.0 - 8.0 pH 10/03/2023 1:17 PM CDT [facility] Protein UA Negative Negative 10/03/2023 1:17 PM CDT [facility] Urobilinogen UA Negative Negative mg/dL 10/03/2023 1:17 PM CDT [facility] Nitrite UA Negative Negative 10/03/2023 1:17 PM CDT [facility] Leukocyte UA Negative Negative 10/03/2023 1:17 PM CDT [facility] Urine Microscopy Urine microscopy not indicated 10/03/2023 1:17 PM CDT [facility] Reflex Status Culture not indicated 10/03/2023 1:17 PM CDT [facility] Urine URINE SPECIMEN OBTAINED BY CLEAN CATCH PROCEDURE / Unknown Collection / Unknown 10/03/2023 1:11 PM CDT 10/03/2023 1:11 PM CDT Narrative [facility] - 10/03/2023 1:17 PM CDT [facility] - URINALYSIS O RDERABLES Performing Organization Address City/[facility]/ZIP Co de Phone Number [facility] [address] [place] [phone] * BLOOD TYPE ABO+ RH PANEL (10/03/2023 11:33 AM CDT) ABO Rh O POS 10/03/2023 12:14 PM CDT [facility] Comment:No history; collect retype. Blood BLOOD SPECIMEN / Unknown Venipuncture / Unknown 10/03/2023 11:33 AM CDT 10/03/2023 11:34 AM CDT Angelic Woo DO LAB - BLOOD BANK ORD ERABLES [facility] [address] [place], [place] [address] [phone] Care Teams Debeaker Relationship Specialty Start Date End Date Whit Dailey MD [address] [place] [address] PCP - General Family Medicine 12/21/23
--- OUTSIDE RECORDS SUMMARY | 2024-03-21 12:47 | XMS_ITS | Clinical Summary ---
Author Organization [facility] Address [address] [facility] [place] [address] Care Team Providers Care Manager Client Service Name Role Phone Whit Dailey MD Primary Care Provider [phone] Source Comments [facility],non-owned Affiliates and Associated Physician Practices is amultiple site organization consisting of ambulatory clinics and hospital sitesin [place], [place], [place] and [place]. This disclosure is being madepursuant to the Care Everywhere program and may not contain all information available regarding this patient. Last updated 17.[facility] Allergies Active Allergy Reactions Criticality Noted Date [...] fluticasone propionate (Flonase) 50 MCG/ACT nasal spray [place] 2 (two) sprays into each nostril Active [...] Type Department Care Team Description 01/18/2024 Telephone [facility] [address] [place] [phone] Whit Dailey MD Referral 12/21/2023 9:00 AM MANAGER VISUAL Office Visit [facility] [address] [place] [phone] Whit Dailey MD 18 weeks gestation of [...] Blood Pressure 102/63 12/21/2023 8:52 AM MANAGER VISUAL Pulse 99 12/21/2023 8:52 AM MANAGER VISUAL Temperature 36.8 C (98.3 F) 10/21/2023 9:34 AM CDT Respiratory Rate 18 12/21/2023 8:52 AM MANAGER VISUAL Oxygen Saturation 98% 12/21/2023 8:52 AM MANAGER VISUAL Inhaled Oxygen Concentration - - Weight 72.1 kg (159 lb) 12/21/2023 8:52 AM MANAGER VISUAL Height 170.2 cm (5' 7 ) 12/21/2023 8:52 AM MANAGER VISUAL Body Mass Index 24.9 12/21/2023 8:52 AM MANAGER VISUAL Plan of Treatment Upcoming Encounters Date Type Department Care Team (Late st Contact Info) Description 04/03/2024 11:30 AM MANAGER VISUAL Office Visit [facility] - Family Medicine [address] [place] [phone] Whit Dailey MD [address] [place] [address] Health Maintenance Due Date Last Done Comments HIV SCREENING 02/07/2003 HEPATITIS C SCREENING 02/03/2006 DTAP/TDAP/TD VACCINES (1 - Tdap) 02/07/2007 HEPATITIS B VACCINE (1 of 3 - 19+ 3-dose series) 02/07/2007 COVID-19 VACCINE (1 - 2023-2 5 season) 2023 INFLUENZA VACCINE [...] yrs (No Doses Required) Completed Care Teams Manager Client Service Relationship Specialty Start Date End Date Whit aDiley MD [address] [place] [address] PCP - General Family Medicine 12/21/23
--- OUTSIDE RECORDS SUMMARY | 2024-03-21 12:47 | XMS_ITS | Referral Summary ---
Author Organization [facility] Address [address] [facility] [place] [address] Care Team Providers Care Top Closer Name Role Phone Whit Dailey MD Primary Care Provider [phone] Source Comments [facility],non-owned Affiliates and Associated Physician Practices is amultiple site organization consisting of ambulatory clinics and hospital sitesin [place], [place], [place] and [place]. This disclosure is being madepursuant to the Care Everywhere program and may not contain all information available regarding this patient. Last updated 17.[facility] Encounters Date Type Department Care Team Description 01/18/[address] [facility] [address] [place] [phone] Whit Dailey MD Referral 12/21/2023 9:00 AM PARALEGAL INTERNSHIP Office Visit [facility] [address] [place] [phone] Whit Dailey MD 18 weeks gestation of [...] fluticasone propionate (Flonase) 50 MCG/ACT nasal spray [place] 2 (two) sprays into each nostril Active [...] Comments Blood Pressure 102/63 12/21/2023 8:52 AM PARALEGAL INTERNSHIP Pulse 99 12/21/2023 8:52 AM [employer]GAL INTERNSHIP Temperature 36.8 C (98.3 F) 10/21/2023 9:34 AM CDT Respiratory Rate 18 12/21/2023 8:52 AM [employer]GAL INTERNSHIP Oxygen Saturation 98% 12/21/2023 8:52 AM [employer]GAL INTERNSHIP Inhaled Oxygen Concentration - - Weight 72.1 kg (159 lb) 12/21/2023 8:52 AM [employer]ALEGAL INTERNSHIP Height 170.2 cm (5' 7 ) 12/21/2023 8:52 AM [employer] INTERNSHIP Body Mass Index 24.9 12/21/2023 8:52 AM [employer]ALEGAL INTERNSHIP Plan of Treatment Upcoming Encounters Date Type Department Care Team (Late st Contact Info) Description 04/03/2024 11:30 AM [employer]GAL INTERNSHIP Office Visit [facility] - Family Medicine [address] [place] [phone] Whit Dailey MD [address] [place] [address] Care Teams Top Closer Relationship Specialty Start Date End Date Whit Dailey MD [address] [place] [address] PCP - General Family Medicine 12/21/23
[2024-03-21 12:57] LABS: Iron 152 ug/dL (37-170)
[2024-03-21 13:07] LABS: Percent Iron Saturation 34 % (20-50)
== END 2024-03-21 11:29 | disposition home or self-care (01) ==
LOC: ANHLAB 11:30
PROVIDERS: Visit Provider Obstetrics & Gynecology
DX: O99.019 Anemia complicating pregnancy, unspecified trimester (principal); Z3A.00 Weeks of gestation of pregnancy not specified
CPT/HCPCS: 36415; 82728; 83540; 83550

== ENCOUNTER 2024-04-17 18:34 | Observation (INO) | payer BC, SELFPAY ==
[2024-04-17 18:51] VITALS: BP 120/67; PULSE 86
[2024-04-17 19:01] VITALS: BP 122/71; PULSE 82
--- NOTE | 2024-04-17 19:19 | OBADM ---
This patient, Priti Heath, admitted to the OB room Labor/Delivery/Recovery 120 for observation. Patient/family oriented to hospital policies and general routines including ID bracelet, bed and alarms, visiting hours, pain management, procedures, bathroom and other care routines, personal items, smoking policy, room service/diet, and visiting hours. Patient/Family are encouraged to report perceived risks to care and to ask questions if they do not understand what they are told or what they should do.
[2024-04-17 19:29] LABS: Add Urine Microscopic? NO; Appearance Urine Clear (Clear); Bilirubin Urine Negative (Negative); Blood Urine Negative (Negative); Color Urine Yellow (Yellow); Glucose Urine UA Negative (Negative); Ketones Urine Negative (Negative); Leukocyte Esterase Ur Negative LEU/UL (Negative); Nitrate Urine Negative (Negative); Protein Urine Negative (Negative); Specific Grav Ur 1.017 (1.001-1.035); Urobilinogen Urine 0.2 mg/dL (<2.0); pH Urine 6.5 (5.0-9.0)
--- OUTSIDE RECORDS SUMMARY | 2024-04-17 19:32 | XMS_ITS | Patient Health Summary ---
Author Organization [facility] Address [address] [place] [address] Care Team Providers Care Collection Manager Name Role Phone Whit Dailey MD Primary Care Provider [phone] Note from [facility],non-owned Affiliates and Associated Physician Practices is amultiple site organization consisting of ambulatory clinics and hospital sitesin [place], [place], [place] and [place]. This disclosure is being madepursuant to the Care Everywhere program and may not contain all information available regarding this patient. Last updated 17.[facility] Allergies * Morphine(Angioedema) -High Criticality * Ibuprofen(Angioedema) [...] fluticasone propionate (Flonase) 50 MCG/ACT nasal spray [place] 2 (two) sprays into each nostril * [...] Comments Blood Pressure 102/63 12/21/2023 8:52 AM PODIATRY DOCTOR Pulse 99 12/21/2023 8:52 AM PODIATRY DOCTOR Temperature 36.8 C (98.3 F) 10/21/2023 9:34 AM CDT Respiratory Rate 18 12/21/2023 8:52 AM PODIATRY DOCTOR Oxygen Saturation 98% 12/21/2023 8:52 AM PODIATRY DOCTOR Inhaled Oxygen Concentration - - Weight 72.1 kg (159 lb) 12/21/2023 8:52 AM PODIATRY DOCTOR Height 170.2 cm (5' 7 ) 12/21/2023 8:52 AM PODIATRY DOCTOR Body Mass Index 24.9 12/21/2023 8:52 AM PODIATRY DOCTOR Procedures * US OB LESS 14 WKS [...] DATE/TIME OF EXAM: 10/21/2023 11:16 AM, LOCATION [facility] INDICATION: O46.90: Antepartum hemorrhage, unspecified, [...] DATE/TIME OF EXAM: 10/21/2023 11:16 AM, LOCATION [facility] INDICATION: O46.90: Antepartum hemorrhage, unspecified, [...] Rh O POS 10/21/2023 10:32 AM CDT [facility] Comment:History checked. Antibody Screen NEG 10:32 AM CDT [facility] Blood Bank BLOOD SPECIMEN / Unknown Venipuncture / Unknown 10/21/2023 9:55 AM CDT 10/21/2023 9:55 AM CDT [facility] - BLOOD BANK O RDERABLES [facility] [address] [phone] * (ABNORMAL) CBC W AUTO DIFFERENTIAL (10/21/2023 9:55 AM CDT) Only the most recent of2 resultswithin the time period is included. WBC 6.0 4.0 - 10.7 x10E9/L 10/21/2023 9:57 AM CDT [facility] RBC Count 3.91 3.90 - 5.20 x10E12/L 10/21/2023 9:57 AM CDT [facility] Hemoglobin 11.3(L) 11.9 - 15.8 g/dL 10/21/2023 9:57 AM CDT [facility] Hematocrit 34.0(L) 34.8 - 46.1 % 10/21/2023 9:57 AM CDT [facility] MCV 87.0 80.0 - 98.0 fL 10/21/2023 9:57 AM CDT [facility] MCH 28.9 26.7 - 33.6 pg 10/21/2023 9:57 AM CDT [facility] MCHC 33.2 31.7 - 36.3 g/dL 10/21/2023 9:57 AM CDT [facility] RDW-CV 12.3 11.3 - 14.8 % 10/21/2023 9:57 AM CDT [facility] Platelet Count 174 150 - 420 x10E9/L 10/21/2023 9:57 AM CDT [facility] MPV 9.8 7.8 - 11.4 fL 10/21/2023 9:57 AM CDT [facility] Neutrophil % 72.0 41.0 - 74.0 % 10/21/2023 9:57 AM CDT [facility] Lymphocyte % 19.3 17.0 - 47.0 % 10/21/2023 9:57 AM CDT [facility] Monocyte % 7.0 3.0 - 11.0 % 10/21/2023 9:57 AM CDT [facility] Eosinophil % 1.2 0.0 - 7.0 % 10/21/2023 9:57 AM CDT [facility] Basophil % 0.2 0.0 - 1.6 % 10/21/2023 9:57 AM CDT [facility] Immature Granulocytes % 0.3 0.0 - 1.0 % 10/21/2023 9:57 AM CDT [facility] Neutrophil Absolute 4.33 1.60 - 7.50 x10E9/L 10/21/2023 9:57 AM CDT [facility] Lymphocyte Absolute 1.16 1.00 - 4.40 x10E9/L 10/21/2023 9:57 AM CDT [facility] Monocyte Absolute 0.42 0.15 - 1.00 x10E9/L 10/21/2023 9:57 AM CDT [facility] Eosinophil Absolute 0.07 0.00 - 0.60 x10E9/L 10/21/2023 9:57 AM CDT [facility] Basophil Absolute 0.01 0.00 - 0.13 x10E9/L 10/21/2023 9:57 AM CDT [facility] Blood BLOOD SPECIMEN / Unknown Venipuncture / Unknown 10/21/2023 9:55 AM CDT 10/21/2023 9:55 AM CDT [facility] - HEMATOLOGY O RDERABLES [facility] [address] [place] [address] * COMPREHENSIVE METABOLIC PANEL (10/21/2023 9:55 AM CDT) Only the most recent of2 resultswithin the time period is included. [facility] Glucose 86 70 - 105 mg/dL 10/21/2023 10:12 AM [facility] Sodium 136 136 - 145 mmol/L 10/21/2023 10:12 AM [facility] Potassium 3.9 3.5 - 5.1 mmol/L 10/21/2023 10:12 AM [facility] Chloride 106 98 - 107 mmol/L 10/21/2023 10:12 AM [facility] CO2 23 22 - 29 mmol/L 10/21/2023 10:12 AM [facility] Calcium 9.6 8.4 - 10.4 mg/dL 10/21/2023 10:12 AM [facility] Anion Gap 7 6 - 16 mmol/L 10/21/2023 10:12 AM [facility] BUN 11 5.3 - 18.7 mg/dL 10/21/2023 10:12 AM [facility] Creatinine 0.76 0.57 - 1.11 mg/dL 10/21/2023 10:12 AM [facility] Alkaline Phosphatase 59 40 - 150 U/L 10/21/2023 10:12 AM [facility] ALT 19 0 - 55 U/L 10/21/2023 10:12 AM CDT [facility] AST 19 5 - 34 U/L 10/21/2023 10:12 AM CDT [facility] Protein Total 6.9 6.4 - 8.3 gm/dL 10/21/2023 10:12 AM CDT [facility] Albumin 3.8 3.4 - 5.0 gm/dL 10/21/2023 10:12 AM CDT [facility] Bilirubin Total 0.3 0.2 - 1.2 mg/dL 10/21/2023 10:12 AM CDT [facility] eGFR by CKD-EPI >90 >=90 mL/min/1.7 3 m2 10/21/2023 10:12 AM CDT [facility] Blood BLOOD SPECIMEN / Unknown Venipuncture / Unknown 10/21/2023 9:55 AM CDT 10/21/2023 9:55 AM CDT [facility] - CHEMISTRY OR DERABLES Performing Organization Address City/State/[facility] Co de Phone Number [facility] [address] [place], [place] [phone] * HCG BETA BLOOD QUANTITATIVE (10/21/2023 9:55 AM CDT) Only the most recent of2 resultswithin the time period is included. hCG Quantitative 184,296.1 6 mIU/mL 10/21/2023 10:39 AM CDT [facility] Blood BLOOD SPECIMEN / Unknown Venipuncture / Unknown 10/21/2023 9:55 AM CDT 10/21/2023 9:55 AM CDT Narrative [facility] - 10/21/2023 10:39 AM CDT hCG [...] - CHEMISTRY OR DERABLES Performing Organization Address [facility] Co de Phone Number [facility] [address] [place] [address] * MAGNESIUM BLOOD (10/21/2023 9:55 AM CDT) Only the most recent of2 resultswithin the time period is included. Pathologist [facility] Magnesium 1.7 1.6 - 2.6 mg/dL 10/21/2023 10:12 AM CDT [facility] Blood BLOOD SPECIMEN / Unknown Venipuncture / Unknown 10/21/2023 9:55 AM CDT 10/21/2023 9:55 AM CDT [facility] - CHEMISTRY OR DERABLES Performing Organization Address [facility] de Phone Number [facility] [address] [place] [address] * (ABNORMAL) URINALYSIS REFLEX MICROSCOPIC REFLEX CULTURE (10/03/2023 1:11 PM CDT) Color UA Colorless(A) Straw, Yellow 10/03/2023 1:17 PM CDT [facility] Clarity UA Clear Clear 10/03/2023 1:17 PM CDT [facility] Glucose UA Negative Negative 10/03/2023 1:17 PM CDT [facility] Bilirubin UA Negative Negative 10/03/2023 1:17 PM CDT [facility] Ketone UA Negative Negative 10/03/2023 1:17 PM CDT [facility] Specific [place] UA 1.003(L) 1.005 - 1.030 10/03/2023 1:17 PM CDT [facility] Blood UA Negative Negative 10/03/2023 1:17 PM CDT [facility] pH UA 8.0 5.0 - 8.0 pH 10/03/2023 1:17 PM CDT [facility] Protein UA Negative Negative 10/03/2023 1:17 PM CDT [facility] Urobilinogen UA Negative Negative mg/dL 10/03/2023 1:17 PM CDT [facility] Nitrite UA Negative Negative 10/03/2023 1:17 PM CDT [facility] Leukocyte UA Negative Negative 10/03/2023 1:17 PM CDT [facility] Urine Microscopy Urine microscopy not indicated 10/03/2023 1:17 PM CDT [facility] Reflex Status Culture not indicated 10/03/2023 1:17 PM CDT [facility] Urine URINE SPECIMEN OBTAINED BY CLEAN CATCH PROCEDURE / Unknown Collection / Unknown 10/03/2023 1:11 PM CDT 10/03/2023 1:11 PM CDT Narrative [facility] - 10/03/2023 1:17 PM CDT [facility] - URINALYSIS O RDERABLES Performing Organization Address City/[facility]/ZIP Co de Phone Number [facility] [address] [place] [phone] * BLOOD TYPE ABO+ RH PANEL (10/03/2023 11:33 AM CDT) ABO Rh O POS 10/03/2023 12:14 PM CDT [facility] Comment:No history; collect retype. Blood BLOOD SPECIMEN / Unknown Venipuncture / Unknown 10/03/2023 11:33 AM CDT 10/03/2023 11:34 AM CDT Angelic Woo DO LAB - BLOOD BANK ORD ERABLES [facility] [address] [place], [place] [address] [phone] Care Teams Collection Manager Relationship Specialty Start Date End Date Whit Dailey MD [address] [place] [address] PCP - General Family Medicine 12/21/23
--- OUTSIDE RECORDS SUMMARY | 2024-04-17 19:32 | XMS_ITS | Referral Summary ---
Author Organization [facility] Address [address] [place] [address] Care Team Providers Care Spotlight Operator Name Role Phone Whit Dailey MD Primary Care Provider [phone] [facility],non-owned Affiliates and Associated Physician Practices is amultiple site organization consisting of ambulatory clinics and hospital sitesin [place], [place], [place] and [place]. This disclosure is being madepursuant to the Care Everywhere program and may not contain all information available regarding this patient. Last updated 17.[facility] Encounters Date Type Department Care Team Description 01/18/[address] [facility] - Family Medicine [address] [place] [address] Whit Dailey MD Referral from Last 3 Months Allergies Active Allergy [...] fluticasone propionate (Flonase) 50 MCG/ACT nasal spray [place] 2 (two) sprays into each nostril Active [...] Comments Blood Pressure 102/63 12/21/2023 8:52 AM RELIGION TEACHER Pulse 99 12/21/2023 8:52 AM RELIGION TEACHER Temperature 36.8 C (98.3 F) 10/21/2023 9:34 AM CDT Respiratory Rate 18 12/21/2023 8:52 AM RELIGION TEACHER Oxygen Saturation 98% 12/21/2023 8:52 AM RELIGION TEACHER Inhaled Oxygen Concentration - - Weight 72.1 kg (159 lb) 12/21/2023 8:52 AM RELIGION TEACHER Height 170.2 cm (5' 7 ) 12/21/2023 8:52 AM RELIGION TEACHER Body Mass Index 24.9 12/21/2023 8:52 AM RELIGION TEACHER Plan of Treatment Not on file Care Teams Spotlight Operator Relationship Specialty Start Date End Date Whit Dailey MD [address] [place] [address] PCP - General Family Medicine 12/21/23
--- OUTSIDE RECORDS SUMMARY | 2024-04-17 19:32 | XMS_ITS | Clinical Summary ---
Author Organization [facility] Address [address] [facility] [place] [address] Care Team Providers Care Director Global Medical Affairs Name Role Phone Whit Dailey MD Primary Care Provider [phone] Source Comments [facility],non-owned Affiliates and Associated Physician Practices is amultiple site organization consisting of ambulatory clinics and hospital sitesin [place], [place], [place] and [place]. This disclosure is being madepursuant to the Care Everywhere program and may not contain all information available regarding this patient. Last updated 17.[facility] Allergies Active Allergy Reactions Criticality Noted Date [...] fluticasone propionate (Flonase) 50 MCG/ACT nasal spray [place] 2 (two) sprays into each nostril Active [...] Type Department Care Team Description 01/18/2024 Telephone [facility] [address] [place] [address] Whit Dailey MD Referral from Last 3 Months Family History Medical [...] Comments Blood Pressure 102/63 12/21/2023 8:52 AM ROLL SKINNER Pulse 99 12/21/2023 8:52 AM ROLL SKINNER Temperature 36.8 C (98.3 F) 10/21/2023 9:34 AM CDT Respiratory Rate 18 12/21/2023 8:52 AM ROLL SKINNER Oxygen Saturation 98% 12/21/2023 8:52 AM ROLL SKINNER Inhaled Oxygen Concentration - - Weight 72.1 kg (159 lb) 12/21/2023 8:52 AM ROLL SKINNER Height 170.2 cm (5' 7 ) 12/21/2023 8:52 AM ROLL SKINNER Body Mass Index 24.9 12/21/2023 8:52 AM ROLL SKINNER Plan of Treatment Health Maintenance Due Date Last Done Comments HIV SCREENING 02/07/2003 HEPATITIS C SCREENING 02/03/2006 DTAP/TDAP/TD VACCINES (1 - Tdap) 02/07/2007 HEPATITIS B VACCINE (1 of 3 - 19+ 3-dose series) 02/07/2007 COVID-19 VACCINE (2023-2 5 season) 2023 INFLUENZA VACCINE (#1) 2023 DEPRESSION SCREENING 02/09/2024 12/21/2023 OB-ONE HOUR GLUCOSE 02/17/2024 OB-TDAP CURRENT 02/24/2024 OB-GROUP B STREP SCREEN 04/20/2024 PAP SMEAR 09/08/2025 09/08/2022 (Done Outside Per [...] yrs (No Doses Required) Completed Care Teams Director Global Medical Affairs Relationship Specialty Start Date End Date Whit Dailey MD [address] [place] [address] PCP - General Family Medicine 12/21/23
--- NOTE | 2024-04-18 07:40 | P.PNOB_ITS ---
OB - Triage/Final Diagnosis Visit Information Comments/Additional reasons for admission: I have assessed the risk for this patient, Priti Heath, and determined that she would benefit from observation care. Evaluation Laboratory results: Laboratory Tests 04/17/24 19:02 Urine Color Yellow Urine Appearance Clear Urine pH 6.5 Ur Specific [place] 1.017 Urine Protein Negative Urine Glucose (UA) Negative Urine Ketones Negative Ur Blood (Man) Negative Urine Nitrate Negative Urine Bilirubin Negative Urine Urobilinogen 0.2 Leukocyte Esterase Rfl Negative Vital signs: Vital Signs - 24 hr 04/17/24 18:51 04/17/24 19:01 04/17/24 19:19 Pulse Rate 86 82 Blood Pressure 120/67 122/71 Oxygen Delivery Room Air Final Diagnosis (1) Abdominal pain affecting : Code(s): O26.899 - Other specified related conditions, unspecified trimester; R10.9 - Unspecified abdominal pain Status: Acute
== END 2024-04-17 20:05 ==
LOC: ANHLDR 04-18 07:21
PROVIDERS: Admitting Provider Obstetrics & Gynecology; Visit Provider Obstetrics & Gynecology
DX: O26.893 Other specified pregnancy related conditions, third trimester (principal); R10.9 Unspecified abdominal pain; Z3A.34 34 weeks gestation of pregnancy
CPT/HCPCS: 81003; G0378; G0379

== ENCOUNTER 2024-05-12 20:00 | Inpatient (IN) | payer BC, SELFPAY ==
--- OUTSIDE RECORDS SUMMARY | 2024-05-12 22:26 | XMS_ITS | Clinical Summary ---
Author Organization [facility] Address [address] [facility] [place] [address] Care Team Providers Care Bungy Jump Master Name Role Phone Whit Dailey MD Primary Care Provider [phone] Source Comments [facility],non-owned Affiliates and Associated Physician Practices is amultiple site organization consisting of ambulatory clinics and hospital sitesin [place], [place], [place] and [place]. This disclosure is being madepursuant to the Care Everywhere program and may not contain all information available regarding this patient. Last updated 17.[facility] Allergies Active Allergy Reactions Criticality Noted Date [...] fluticasone propionate (Flonase) 50 MCG/ACT nasal spray [place] 2 (two) sprays into each nostril Active diphenhydrAMINE (Benadryl) 25 MG capsule Take 1 (one) capsule by mouth nightly as needed for Itching Active Active Problems Problem Noted Date Diagnosed Date Generalized anxiety disorder 12/21/2023 Allergic rhinitis 12/21/2023 18 weeks gestation of 12/21/2023 PND (post-nasal drip) 12/21/2023 Skipped heart beats 12/21/2023 Estimated Date of Delivery Comme nts Yes 05/25/2024 Family History Medical History Relation Name Comments [...] Comments Blood Pressure 102/63 12/21/2023 8:52 AM CLIENT DEVELOPMENT MANAGER Pulse 99 12/21/2023 8:52 AM CLIENT DEVELOPMENT MANAGER Temperature 36.8 C (98.3 F) 10/21/2023 9:34 AM CDT Respiratory Rate 18 12/21/2023 8:52 AM CLIENT DEVELOPMENT MANAGER Oxygen Saturation 98% 12/21/2023 8:52 AM CLIENT DEVELOPMENT MANAGER Inhaled Oxygen Concentration - - Weight 72.1 kg (159 lb) 12/21/2023 8:52 AM CLIENT DEVELOPMENT MANAGER Height 170.2 cm (5' 7 ) 12/21/2023 8:52 AM CLIENT DEVELOPMENT MANAGER Body Mass Index 24.9 12/21/2023 8:52 AM CLIENT DEVELOPMENT MANAGER Plan of Treatment Health Maintenance Due Date [...] complete this topic MENINGOCOCCAL (Group B) VACCINE SHARED DECISION-MAKING Aged Out No longer eligible based on patient's age to complete this topic MENINGOCOCCAL GROUPS A/C/Y/W VACCINE Aged Out No longer eligible based on patient's age to complete this topic PNEUMOCOCCAL VACCINE Aged Out No long er eligible based on patient's age to complete this topic Respiratory Syncytial Virus (RSV) Vaccine Pt: or over 60 yrs (No Doses Required) Completed Care Teams Bungy Jump Master Relationship Specialty Start Date End Date Whit Dailey MD [address] [place] [address] PCP - General Family Medicine 12/21/23
[2024-05-12] MEDS: LACTATED RINGERS 1,000 ML 999 ML IV CONT (22:30)
[2024-05-12] MEDS: ACETAMINOPHEN 500 MG TABLET 1000 MG PO (22:40)
--- NOTE | 2024-05-12 23:33 | WPDANESEPPF ---
Anes - Initial Pre Proc Eval Procedure: repeat C/S Date/Time: 05/12/24 23:33 Surgeon: Ryan Medrano MD Pre Op Diagnosis: previous C/S; lindsay Pre Op Diagnosis: Contractions Patient Data Age: 34 Gender: F Height: Weight: Allergies Allergy/AdvReac Type Severity Reaction Status Date / Time ibuprofen Allergy Mild Nausea and Verified 05/09/24 15:48 Vomiting morphine Allergy Mild Itching Verified 05/09/24 15:48 Home Medications ?Medication ?Instructions ?Recorded ?Confirmed ?Type vits no.126-ferrous fum tablet PO 10/04/23 05/09/24 History 28 mg iron-folic acid 800 mcg tablet (Classic ) cetirizine 10 mg capsule (Zyrtec) 10 mg PO DAILY PRN allergy symptoms 01/17/24 05/09/24 History escitalopram oxalate 5 mg tablet 5 mg PO 03/09/24 05/09/24 History Patient hx anesthesia problems: none Family hx anesthesia problems: none Prior surgeries: C/S; tonsillectomy Results Review: All pre-operative results and documents have been reviewed as part of the pre-operative evaluation. [facility] Past Medical History Medical History Suppression of menses Surgical History Surgical History History of tonsillectomy History of delivery Family History Family History Father Hypertension Mother No problems noted. Sibling No problems noted. Grandparent Dementia Social History Social History Smoking status: Former smoker Tobacco type: e-cigarettes/vaping Alcohol intake: former Substance use: never Substance use type: marijuana Last use: edible at night / none since being Do You Feel Safe in your Home?: Yes Lack of Transportation: No Lack of Food: Never True Current Housing: Decline to Answer Concerned About Future Housing: Decline to Answer Difficulty Paying Gas/Electric Bills: Decline to Answer Difficulty Paying for Meds: Decline to Answer Currently Unemployed: Decline to Answer Education: Decline to Answer Difficulty w/ Childcare or Family Care: Decline to Answer Living arrangements: with family Occupation/Education: occupation Gender identity (if verbalized by the patient): Female Sexual Orientation (if Verbalized by the Patient): Straight or Heterosexual Spiritual care concerns: No Anes - Eval Final PreProcedure Day of Procedure 05/12/24 23:33 Heart: regular rate and rhythm Lungs: clear to auscultation and normal air movement Airway: Mallampati scale class 1 Neurological: alert and oriented ASA classification: II Emergent: yes Anesthetic plan: proceed Anesthesia type and monitoring: regional spinal and standard monitoring Results Review: All pre-operative results and documents have been reviewed as part of the pre-operative evaluation. Informed Consent: The patient's anesthetic plan and its attendant risks and benefits were discussed with the patient/family/POA. Questions were solicited and answers provided to the satisfaction of the patient/family/POA.
[2024-05-12] MEDS: ONDANSETRON INJ 4 MG/2 ML VIAL IV PUSH (23:45)
[2024-05-12] MEDS: FAMOTIDINE 20 MG/2 ML VIAL IV PUSH (23:45)
[2024-05-12 23:49] VITALS: TEMP 36.8
[2024-05-13] VITALS (55 sets, daily range): BP systolic 100–139; BP diastolic 53–95; PULSE 30–128; RESP 14–18; TEMP 36–36.9; O2SAT 92–100; BMI 31.4
[2024-05-13 00:12] LABS: Basophils Percent Auto 0.2 % (0.2-1.2); Eosinophils Absolute Auto 0.1 K/mm3 (0-0.3); Eosinophils Percent Auto 0.6 % (0-4.4); Hematocrit 30.5 % (37.0-47.0); Hemoglobin 9.9 g/dL (12.0-15.0); Immature Granulocyte Absolute 0.09 K/mm3 (0.00-0.031); Immature Granulocyte Percent A 0.8 % (0-0.5); Lymphocytes Absolute Auto 1.37 K/mm3 (0.9-3.2); Lymphocytes Percent Auto 12.5 % (18.3-44.2); Mean Corpuscular HGB Conc 32.5 g/dl (32-36); Mean Corpuscular Hemoglobin 26.7 pg (26-34); Mean Corpuscular Volume 82.2 fl (80-100); Mean Platelet Volume 10.6 fl (7.4-10.4); Monocytes Absolute Auto 0.7 K/mm3 (0.1-0.6); Monocytes Percent Auto 6.3 % (2.6-8.5); Neutrophils Absolute Auto 8.7 K/mm3 (1.3-6.7); Neutrophils Percent Auto 79.6 % (45.5-73.1); Platelet Count Result 215 k/mm3 (150-375); Red Blood Count 3.71 M/mm3 (4.2-5.4); Red Cell Distribution Width 14.2 % (11.5-14.5)
--- NOTE | 2024-05-13 00:20 | PM.IMHP ---
H&P: HPI History of Present Illness Date/Time: 05/13/24 00:20 34-year-old female 2 para 1001 at 38 weeks presents with increasing contractions and discomfort. She does have prior delivery and scheduled for repeat. Cervix is essentially unchanged but contractions have increased in intensity and frequency. records are on the chart and essentially care has been uncomplicated, AMA consultation early in with normal findings. Chief Complaint: Review of Systems Review of Systems: All systems reviewed & are unremarkable except as noted in HPI and below PMFSH Past Medical History Medical History Suppression of menses Surgical History Surgical History History of tonsillectomy History of delivery Family History Family History Father Hypertension Mother No problems noted. Sibling No problems noted. Grandparent Dementia Social History Social History Smoking status: Former smoker Tobacco type: e-cigarettes/vaping Alcohol intake: former Substance use: never Substance use type: marijuana Last use: edible at night / none since being Do You Feel Safe in your Home?: Yes Lack of Transportation: No Lack of Food: Never True Current Housing: Decline to Answer Concerned About Future Housing: Decline to Answer Difficulty Paying Gas/Electric Bills: Decline to Answer Difficulty Paying for Meds: Decline to Answer Currently Unemployed: Decline to Answer Education: Decline to Answer Difficulty w/ Childcare or Family Care: Decline to Answer Living arrangements: with family Occupation/Education: occupation Gender identity (if verbalized by the patient): Female Sexual Orientation (if Verbalized by the Patient): Straight or Heterosexual Spiritual care concerns: No Meds Home Medications and Allergies Home Medications ?Medication ?Instructions ?Recorded ?Confirmed ?Type vits no.126-ferrous fum tablet PO 10/04/23 05/09/24 History 28 mg iron-folic acid 800 mcg tablet (Classic ) cetirizine 10 mg capsule (Zyrtec) 10 mg PO DAILY PRN allergy symptoms 01/17/24 05/09/24 History escitalopram oxalate 5 mg tablet 5 mg PO 03/09/24 05/09/24 History Allergies Allergy/AdvReac Type Severity Reaction Status Date / Time ibuprofen Allergy Mild Nausea and Verified 05/09/24 15:48 Vomiting morphine Allergy Mild Itching Verified 05/09/24 15:48 Exam Const: General: cooperative and healthy appearing Resp: Effort & Inspection: normal respiratory effort Auscultation: clear to auscultation bilaterally Cardio: Rate: regular rate Rhythm: regular rhythm GI: Inspection: normal to inspection Auscultation: normal bowel sounds : Bimanual exam- vagina & uterus: enlarged (Fundal height 39cm heart tone 140) H&P: Results Labs Labs: Short CBC 05/13/24 Range/Units 00:02 WBC 11.0 H (4.5-10.0) K/mm3 Hgb 9.9 L (12.0-15.0) g/dL Hct 30.5 L (37.0-47.0) % Plt Count 215 (150-375) k/mm3 Assessment and Plan Assessment and plan (1) 38 weeks gestation of : Code(s): Z3A.38 - 38 weeks gestation of Status: Acute (2) History of delivery: Code(s): Z98.891 - History of uterine scar from previous surgery Status: Acute (3) Uterine contractions during : Code(s): O47.9 - False labor, unspecified Status: Acute Plan Proceed with repeat delivery.
--- NOTE | 2024-05-13 00:22 | WPDHPUPDATE1 ---
History and Physical Update Update Date/Time: 05/13/24 00:22 History and Physical has been reviewed, including an updated exam of the patient. There are NO changes in the patient's condition. Risks, benefits, and alternatives have been discussed and questions answered. Patient agrees to proceed with procedure.
[2024-05-13] MEDS: ceFAZolin 2 GM/D5W 50 ML 2 GM/50 ML BAG IVPB (00:23)
[2024-05-13 00:50] LABS: Syphilis IgG/IgM Antibody Negative (Negative)
[2024-05-13 00:58] LABS: HIV 1/2 Ab P24 Ag Result Negative (Negative)
--- OUTSIDE RECORDS SUMMARY | 2024-05-13 01:04 | XMS_ITS | Clinical Summary ---
Author Organization [facility] Address [address] [place] [address] Care Team Providers Care Riverboat Master Name Role Phone Whit Dailey MD Primary Care Provider [phone] Source Comments [facility]non-owned Affiliates and Associated Physician Practices is amultiple site organization consisting of ambulatory clinics and hospital sitesin [place], [place], [place] and [place]. This disclosure is being madepursuant to the Care Everywhere program and may not contain all information available regarding this patient. Last updated 17.[facility] Allergies Active Allergy Reactions Criticality Noted Date [...] fluticasone propionate (Flonase) 50 MCG/ACT nasal spray [place] 2 (two) sprays into each nostril Active [...] Comments Blood Pressure 102/63 12/21/2023 8:52 AM ACCOUNT INSTALLER Pulse 99 12/21/2023 8:52 AM ACCOUNT INSTALLER Temperature 36.8 C (98.3 F) 10/21/2023 9:34 AM CDT Respiratory Rate 18 12/21/2023 8:52 AM ACCOUNT INSTALLER Oxygen Saturation 98% 12/21/2023 8:52 AM ACCOUNT INSTALLER Inhaled Oxygen Concentration - - Weight 72.1 kg (159 lb) 12/21/2023 8:52 AM ACCOUNT INSTALLER Height 170.2 cm (5' 7 ) 12/21/2023 8:52 AM ACCOUNT INSTALLER Body Mass Index 24.9 12/21/2023 8:52 AM ACCOUNT INSTALLER Plan of Treatment Health Maintenance Due Date [...] yrs (No Doses Required) Completed Care Teams Riverboat Master Relationship Specialty Start Date End Date Whit Dailey MD [address] [place] [address] PCP - General Family Medicine 12/21/23
--- NOTE | 2024-05-13 01:16 | P.PCNOB_ITS ---
OB - Delivery Note Procedure Delivery date: 05/13/24 Pre-op diagnosis: Previous Delivery Post-op Diagnosis: Other (Bicornuate uterus) Procedure Performed: Repeat Secondary branch: low cervical, transverse Surgeon: Krzysztof Ge MD Anesthesia type: Spinal Description of Procedure/Findings: Patient prepped draped usual this procedure. Pfannenstiel incision was made carried down the fascia which was extended bilaterally length of skin incision. Superiorly and inferiorly the rectus muscle and dissected away from the. Peritoneum was entered without difficulty and the bladder flap was developed. Uterus was scored a low transverse manner and extended the lower segment with moderately yellow/green fluid noted, there was no particular matter. Vertex was delivered without difficulty, rest of baby was delivered as well, cord clamped and cut and baby was passed off the operative field. Placenta was removed the uterus and the uterus was exteriorized this point a bicornuate uterus was noted with the baby having been in the right horn of the uterus. Uterine incision was then closed using 0 Monocryl in a running interlocking manner with good approximation and hemostasis noted. Uterus was turned the abdomen gutters were cleared of serosanguineous fluid and clots and all subfascial tissue was noted be hemostatic. Fascia was approximated using 0 Vicryl from left angle midline in the right angle to midline with good approximation noted. All subcutaneous tissue was hemostatic and 0 plain suture was used to close the space. [place] were used to approximate the skin edges. Patient was then sent to recovery room in stable condition. Estimated Blood Loss: 650 Drains: Yes ([place]) Packing: No Pathology: None sent Complications: No immediate complications Condition: Stable Disposition: Floor Baby Gestational Age by Date: 36 gender: Female Weight (pounds): 6 Weight (ounces): 12 presentation: vertex Placenta delivery description: Manual Removal Cord Vessel Description: 3 Vessels
[2024-05-13] MEDS: OXYTOCIN 30 UNITS/NS 500 ML 30 UNITS/500 ML BAG 125 UNITS IV CONT (02:50)
[2024-05-13] MEDS: diphenhydrAMINE HCl INJ 50 MG/ML VIAL 25 MG IV PUSH (06:02)
--- NOTE | 2024-05-13 06:23 | PC.NURSE ---
0530- This RN spoke with Dr. Ge regarding pts itching- order received for benadryl 25mg IVP q4 PRN. Also spoke to Dr. Ge regarding pts morphine and motrin allergy. Dr. Ge stated he is ok with pt receiving both since reactions are itching (this RN verified this with pt). This RN also notified pharmacist Cesar of this and he agreed with Dr. Ge that these meds were safe for pt. Pt does request not to receive morphine, however, and prefers [place] for prn pain. This information was endorsed to day shift RN Lola by this RN.
[2024-05-13] MEDS: DEXTROSE 5%/0.45% SOD CHL 1,000 ML 125 ML IV CONT (07:22)
[2024-05-13] MEDS: SIMETHICONE 80 MG TAB.CHEW PO ×3 (07:24→16:54)
[2024-05-13] MEDS: DOCUSATE SODIUM 100 MG CAPSULE PO ×2 (07:24→16:54)
[2024-05-13] MEDS: ACETAMINOPHEN 325 MG TABLET 650 MG PO ×3 (07:25→19:27)
[2024-05-13] MEDS: KETOROLAC 15 MG/ML VIAL (*BKC) IV PUSH ×3 (07:25→19:27)
--- NOTE | 2024-05-13 07:50 | PC.NURSE ---
Mother called out for assistance. She was given a nipple shield at the first . She states that it was given because baby was unable to latch without it. Her nipples are everted. She has applied the shield for this feeding and baby is eager and opens wide. Mom was shown how to position baby tummy to tummy and nose to nipple. When infant opened wide we brought her in for an optimal latch. Discussed with mom how the shield can cause friction if she doesn't maintain the deep latch. Mom tends to allow baby to slip and she was able to see how the shield was sliding in and out of baby's mouth. Parents shown how to hold baby close to the breast and maintain that position for optimal latch. Mom seems unsure if is for her. She has given some formula bottles overnight. Reviewed that with consistent nipple shield use we would need to initiate pumping. Mom is agreeable to this plan. We will see how subsequent feedings progress today. Mother requested a bottle after the . Primary RN updated.
[2024-05-13] MEDS: diphenhydrAMINE HCl CAP 25 MG CAPSULE PO ×2 (10:28→21:39)
--- NOTE | 2024-05-13 12:00 | PC.NURSE ---
Mother requests a breast pump due to use of the nipple shield and her preference to supplement with formula. Educated parents about pumping every 3 hours for 15 minutes, that there should be no pain, and that the suction can be adjusted to the highest comfortable setting. Mom is very sleepy and states that she will call out when she is ready to pump to assure that the flange fit is appropriate. RN updated.
[2024-05-13] MEDS: HYDROcodone/acetaminophen (*CRX) 5-325 MG TABLET 1 TAB PO ×2 (13:45→19:26)
--- NOTE | 2024-05-13 14:00 | PC.NURSE ---
Patient called out for a pumping assessment. The 24mm flange size was appropriate and the patient declines any pain with pumping. She was again instructed to use the initiation mode to pump for 15 minutes every 3 hours if baby does not breastfeed. She is encouraged to use the highest comfortable vacuum setting and to clean her pump parts in warm soapy water and allow them to air dry after each use.
--- NOTE | 2024-05-13 16:50 | WPDANLDPN2 ---
Anes-Prog Note L&D Date/Time: 05/13/24 16:50 Comfortable throughout: section Neuraxial method: spinal Epidural/Spinal procedure site: clean & non-tender Neuro status: Neuro function grossly intact. Cardiovascular status: normal Respiratory status: normal Airway patency: baseline Mental status: baseline Post-Op hydration status: normal Vital Signs: Last Vital Signs Temp 36.4 C 05/13/24 07:30 Pulse 97 05/13/24 07:30 Resp 18 05/13/24 07:30 BP 121/75 05/13/24 05:30 Pulse Ox 98 05/13/24 07:30 O2 Del Method Room Air 05/13/24 07:30 Pain score (VAS): 4 I/O: Intake & Output 05/13/24 05/13/24 05/13/24 07:59 15:59 23:59 Output Total 650 Balance -650 Post-procedural complaints: none Patient feedback: Patient satisfied with anesthetic care.
--- NOTE | 2024-05-13 16:51 | WPDANLDNPN2 ---
Anes-Prog Note L&D-Neuraxial Date/Time: 05/13/24 16:51 Neuraxial medications: intrathecal PF morphine Opiod-related complaints: none Patient feedback: Patient satisfied with post-operative pain management.
[2024-05-13] MEDS: POLYSACCHARIDE IRON COMPLEX 150 MG CAPSULE PO (16:53)
[2024-05-13] MEDS: LIDOCAINE 5% PATCH 1 PATCH TRANSDERM (21:40)
[2024-05-13] MEDS: SILVER SULFADIAZINE 1% CR 50 GM JAR (*BKC) 1 APPLIC TOPICAL (22:36)
[2024-05-14 00:10] VITALS: BP 118/69; PULSE 92; RESP 18; TEMP 36.4; O2SAT 97
[2024-05-14] MEDS: HYDROcodone/acetaminophen (*CRX) 5-325 MG TABLET 1 TAB PO (01:27)
[2024-05-14] MEDS: ACETAMINOPHEN 325 MG TABLET 650 MG PO ×4 (01:27→21:38)
[2024-05-14] MEDS: KETOROLAC 15 MG/ML VIAL (*BKC) IV PUSH (01:28)
[2024-05-14 06:00] LABS: Basophils Percent Auto 0.2 % (0.2-1.2); Eosinophils Absolute Auto 0.1 K/mm3 (0-0.3); Eosinophils Percent Auto 1.2 % (0-4.4); Hematocrit 24.9 % (37.0-47.0); Hemoglobin 7.7 g/dL (12.0-15.0); Immature Granulocyte Absolute 0.11 K/mm3 (0.00-0.031); Immature Granulocyte Percent A 1.4 % (0-0.5); Lymphocytes Absolute Auto 1.09 K/mm3 (0.9-3.2); Lymphocytes Percent Auto 13.6 % (18.3-44.2); Mean Corpuscular HGB Conc 30.9 g/dl (32-36); Mean Corpuscular Hemoglobin 26.6 pg (26-34); Mean Corpuscular Volume 86.2 fl (80-100); Mean Platelet Volume 10.1 fl (7.4-10.4); Monocytes Absolute Auto 0.6 K/mm3 (0.1-0.6); Monocytes Percent Auto 7.1 % (2.6-8.5); Neutrophils Absolute Auto 6.2 K/mm3 (1.3-6.7); Neutrophils Percent Auto 76.5 % (45.5-73.1); Platelet Count Result 165 k/mm3 (150-375); Red Blood Count 2.89 M/mm3 (4.2-5.4); Red Cell Distribution Width 14.3 % (11.5-14.5)
[2024-05-14 08:00] VITALS: BP 115/0; PULSE 89; RESP 18; TEMP 36.7; O2SAT 100
[2024-05-14] MEDS: HYDROcodone/acetaminophen (*CRX) 10-325 MG TABLET 1 TAB PO ×4 (08:58→22:16)
[2024-05-14] MEDS: IBUPROFEN 600 MG TABLET PO ×3 (08:59→21:37)
[2024-05-14] MEDS: SIMETHICONE 80 MG TAB.CHEW PO ×2 (09:00→17:07)
[2024-05-14] MEDS: SILVER SULFADIAZINE 1% CR 50 GM JAR (*BKC) 1 APPLIC TOPICAL (09:00)
[2024-05-14] MEDS: DOCUSATE SODIUM 100 MG CAPSULE PO ×2 (09:00→17:07)
[2024-05-14] MEDS: POLYSACCHARIDE IRON COMPLEX 150 MG CAPSULE PO ×2 (09:05→17:07)
[2024-05-14] MEDS: TETANUS,DIPHTHERIA,AC PERTUSSIS ADULT (0.5 ML) BOOSTRIX IM (09:09)
--- NOTE | 2024-05-14 09:56 | PM.OBPNVD ---
OB - PN: Subj Subjective Date/time seen: 05/14/24 09:56 Overall doing well. Still in a moderate amount of discomfort but this is well controlled with her current medications. VSS afebrile Incision clean dry and intact with vanessa in place Home tomorrow morning with follow-up in 1 week for staple removal OB - PN: Obj Data Labs 05/14/24 05:31 Labs: Laboratory Results - last 24 hr 05/14/24 05:31 WBC 8.0 RBC 2.89 L Hgb 7.7 L Hct 24.9 L MCV 86.2 MCH 26.6 MCHC 30.9 L RDW 14.3 Plt Count 165 MPV 10.1 Immature Gran % (Auto) 1.4 H Neut % (Auto) 76.5 H Lymph % (Auto) 13.6 L [place] % (Auto) 7.1 Eos % (Auto) 1.2 Baso % (Auto) 0.2 Lymph # (Auto) 1.09 [place] # (Auto) 0.6 Eos # (Auto) 0.1 Baso # (Auto) 0.0 Abs Immat Gran (auto) 0.11 H Absolute Neuts (auto) 6.2 Absolute Nucleated RBC 0.000 Nucleated RBC % 0.0 OB - PN A/P Time Spent With Patient Time: Total time spent is greater than 50% in coordination of care (as documented) at patient's floor/unit and/or counseling patient:
--- NOTE | 2024-05-14 09:57 | PM.OBDSVD ---
DS: Admitting Diagnosis Discharge Date 05/15/2024 Admitting Diagnosis DS: Discharge Diagnosis Discharge Diagnosis (1) , delivered: Code(s): O80 - Encounter for full-term uncomplicated delivery Status: Acute OB - DS: Summary OB Procedures : None OB Procedures Intrapartum: OB Procedures: : None Peripartum Data Procedures: Procedures Operation Date: 05/13/24 00:00 Actual Procedure Side Surgeon p Section Not Applicable Krzysztof Ge MD Time Spent with Patient Time attestation: Total time spent providing and/or coordinating discharge services: DS: Data Data Completed and Pending Labs on day of discharge: Labs from last 24 hours 05/14/24 05:31 WBC 8.0 RBC 2.89 L Hgb 7.7 L Hct 24.9 L MCV 86.2 MCH 26.6 MCHC 30.9 L RDW 14.3 Plt Count 165 MPV 10.1 Immature Gran % (Auto) 1.4 H Neut % (Auto) 76.5 H Lymph % (Auto) 13.6 L [place] % (Auto) 7.1 Eos % (Auto) 1.2 Baso % (Auto) 0.2 Lymph # (Auto) 1.09 [place] # (Auto) 0.6 Eos # (Auto) 0.1 Baso # (Auto) 0.0 Abs Immat Gran (auto) 0.11 H Absolute Neuts (auto) 6.2 Absolute Nucleated RBC 0.000 Nucleated RBC % 0.0 Discharge Plan Discharge Discharging Clinician: Krzysztof Ge Patient Disposition: Home, Self-Care Activity: no straining, no driving, follow weight bearing status and pelvic rest Diet: as tolerated Discharge Instructions: Return to office Wednesday for staple removal Patient Instructions: Antibiotic Form Patient Language: Divehi Stand Alone Forms: General Discharge Information Follow-up/Referrals: Ryan Medrano MD [Physician] - 4 Weeks Discharge Medications: New hydrocodone-acetaminophen 5-325 mg Tablet 1 tablet PO Q3H PRN (Reason: Breakthrough Pain Rated 4-6) Qty: 20 0RF ibuprofen 600 mg Tablet 600 mg PO Q6H Qty: 30 0RF Continued Classic 28 mg iron- 800 mcg tablet PO Zyrtec 10 mg capsule 10 mg PO DAILY PRN (Reason: allergy symptoms) escitalopram oxalate 5 mg tablet 5 mg PO Date of admission: 05/12/24 20:00 Primary Care Provider: UNKNOWN,DOCTOR Admitting Provider: Ryan Medrano Attending physician on admission: Ryan Medrano Condition: Stable
[2024-05-14 19:42] VITALS: BP 127/22; PULSE 88; RESP 16; TEMP 36.7; O2SAT 97
[2024-05-15] MEDS: LIDOCAINE 5% PATCH 1 PATCH TRANSDERM (01:31)
[2024-05-15] MEDS: ACETAMINOPHEN 325 MG TABLET 650 MG PO ×2 (03:31→09:00)
[2024-05-15] MEDS: IBUPROFEN 600 MG TABLET PO ×2 (03:31→09:01)
[2024-05-15 07:25] VITALS: BP 116/68; PULSE 84; RESP 16; TEMP 36.8; O2SAT 98
[2024-05-15] MEDS: SILVER SULFADIAZINE 1% CR 50 GM JAR (*BKC) 1 APPLIC TOPICAL (07:30)
[2024-05-15] MEDS: SIMETHICONE 80 MG TAB.CHEW PO (07:33)
[2024-05-15] MEDS: HYDROcodone/acetaminophen (*CRX) 10-325 MG TABLET 1 TAB PO (07:33)
[2024-05-15] MEDS: POLYSACCHARIDE IRON COMPLEX 150 MG CAPSULE PO (07:33)
[2024-05-15] MEDS: DOCUSATE SODIUM 100 MG CAPSULE PO (07:33)
--- NOTE | 2024-05-15 08:30 | PC.NURSE ---
Patient has been exclusively bottle feeding with some occasional pumping. She requested an insurance pump for home use. She was provided with a Medela pump and her discharge instructions include information on pumping and bottle feeding. RN updated.
--- NOTE | 2024-05-15 11:12 | PM.OBDSVD ---
DS: Admitting Diagnosis Discharge Date 05/15/24 Admitting Diagnosis intrauterine at term prior x1 DS: Discharge Diagnosis Discharge Diagnosis (1) , delivered: Code(s): O80 - Encounter for full-term uncomplicated delivery Status: Acute OB - DS: Summary OB Procedures : None OB Procedures Intrapartum: OB Procedures: : None Peripartum Data Delivery Method: Section Procedures: Procedures Operation Date: 05/13/24 00:00 Actual Procedure Side Surgeon p Section Not Applicable Krzysztof Ge MD complications: none Status at Discharge Functional status at discharge: independent ambulation Overall status at discharge: patient is progressing back to baseline Time Spent with Patient Time attestation: Total time spent providing and/or coordinating discharge services: Time spent: Less than 30 minutes Exam Const: General: comfortable and no acute distress Resp: Effort & Inspection: normal respiratory effort Auscultation: clear to auscultation bilaterally Cardio: Rate: regular rate GI: Inspection: non-distended GI Palp: Yes Soft to palpation, No Firmness to palpation present (GI), Yes Tenderness to palpation present (GI) (mild tenderness over incision ) and No Guarding due to palpation present (GI) Auscultation: normal bowel sounds Psych: Appearance: grossly normal Mental Status: mental status grossly normal Discharge Plan Discharge Attending physician on discharge: Ryan Medrano Discharging Clinician: Krzysztof Ge Patient Disposition: Home Activity: no straining, no driving, follow weight bearing status and pelvic rest Diet: as tolerated Discharge Instructions: Return to office Wednesday for staple removal Education: Mom and Baby Guide Given to: Mother Follow-Up: Call your delivering provider's office for an appointment to be seen in: 1 Week Mom and baby should come to the [facility] for the follow-up appointment. Appointment Date/Time: May 16, 2024 at 1330 What to expect at your follow-up visit: Blood Pressure Check Physical Assessment Call [phone] if you are unable to keep your appointment time. BREAST CARE: * Wear a snug supportive bra. * For engorgement discomfort: Breast Feeding: * Apply warm moist washcloths * Express milk as needed to relieve engorgement * Wear loose clothing Bottle Feeding: * May apply ice packs * For sore nipples: * Identify correct latch-on * Apply warm moist washcloths before and after nursing * Air dry nipples after nursing * May apply Lansinoh cream to nipples ABDOMINAL INCISION: (if applicable) * Allow incision to air dry * Do NOT use lotions for powders on your incision * When showering, allow soap and water to run over the incision, but do not wash incision EPISIOTOMY/PERINEAL CARE: * Until bleeding stops, use your thad bottle after urinating * Change your pad frequently throughout the day * You may take sitz baths several times a day (fill your bathtub with warm water and soak for 20 minutes.) Do NOT bathe in the water * No tub baths until seen by your physician - You may shower ACTIVITY: * Rest as much as possible. * Do not exercise or lift anything heavier than your baby (such as laundry or other children.) * Avoid stairs or driving as much as possible. * Do not put anything into the vagina. No douching, tampons, or sexual activity until seen by physician. NOTIFY PHYSICIAN IF YOU HAVE ANY QUESTIONS OR IF ANY OF THE FOLLOWING SYMPTOMS OCCUR: * If your episiotomy or incision becomes red, swollen, or more painful than what you have experienced in the hospital. * If your vaginal bleeding becomes foul smelling. * If your vaginal bleeding becomes more heavy than a period or if your bleeding changes from pink to bright red. However, you may pass an occasional walnut-sized clot once or twice for the first week . * If you experience a sharp, shooting pain in you calves. * If you discover a hard, reddened area on your breast or if you experience flu-like symptoms. DIET: * Eat regular, well-balanced meals. * Drink plenty of fluids daily. If , drink to thirst. Patient Instructions: Caring for Your Baby (DC), (DC) Patient Language: Bolivian Stand Alone Forms: General Discharge Information Follow-up/Referrals: Ryan Medrano MD [Physician] - 4 Weeks Discharge Medications: New hydrocodone-acetaminophen 5-325 mg Tablet 1 tablet PO Q3H PRN (Reason: Breakthrough Pain Rated 4-6) Qty: 20 0RF ibuprofen 600 mg Tablet 600 mg PO Q6H Qty: 30 0RF Continued Classic 28 mg iron- 800 mcg tablet PO Zyrtec 10 mg capsule 10 mg PO DAILY PRN (Reason: allergy symptoms) escitalopram oxalate 5 mg tablet 5 mg PO Date of admission: 05/12/24 20:00 Primary Care Provider: UNKNOWN,DOCTOR Admitting Provider: Ryan Medrano Attending physician on admission: Ryan Medrano Condition: Stable
[2024-05-15] MEDS: HYDROcodone/acetaminophen (*CRX) 5-325 MG TABLET 1 TAB PO (12:03)
[2024-05-16 14:07] VITALS: BP 136/76; PULSE 77; RESP 20; TEMP 36.7; O2SAT 100
== END 2024-05-15 12:15 | disposition home or self-care (01) | DRG 788 ==
LOC: ANHOB2 05-15 08:20 → ANHLDR 05-16 14:06
PROVIDERS: Admitting Provider Obstetrics & Gynecology; Visit Provider Obstetrics & Gynecology
PROC: 10D00Z1 Extraction of Products of Conception, Low, Open Approach (ICD-10-PCS; CPT 59514; principal; 2024-05-13)
DX: O34.219 Maternal care for unspecified type scar from previous cesarean delivery (principal); Z87.891 Personal history of nicotine dependence; O34.03 Maternal care for unspecified congenital malformation of uterus, third trimester; Q51.3 Bicornate uterus; O77.0 Labor and delivery complicated by meconium in amniotic fluid; Z3A.38 38 weeks gestation of pregnancy; Z37.0 Single live birth
CPT/HCPCS: 36415; 85025; 86593; 86703; 86850; 86900; 86901; 90715; A9270; G0432; J0690; J1200; J1885; J2250; J2274; J2371; J2405; J2590; J3010; J7120